=== PATIENT | female | born 1970 | race Caucasian/White ===

== ENCOUNTER 2021-10-04 09:39 | Inpatient (IN) ==
[2021-10-04] MEDS ORDERED: RAPID SEQUENCE INDUCTION BAG ONE (09:49)
[2021-10-04] MEDS ORDERED: ONDANSETRON INJ 2 MG/ML 2 ML VIAL IV STA (09:52)
[2021-10-04] MEDS ORDERED: PROPOFOL IV EMULSION 10 MG/ML 100 ML VIAL IV ONE (09:55)
[2021-10-04] MEDS ORDERED: STAT IV Infusion **Titration per Protocol STA (10:00)
[2021-10-04] MEDS ORDERED: PROPOFOL BOLUS FROM BAG IV PRN (10:00)
[2021-10-04] MEDS: propofoL 1,000 MG/100 ML VIAL IV SCH ×5 (10:10→23:54)
[2021-10-04 10:25] LABS: Basophils # (auto) 0.02 K/uL (0-0.2); Basophils % (auto) 0.1 %; Eosinophils # (auto) 0.02 K/uL (0-0.5); Eosinophils % (auto) 0.1 %; Hematocrit (blood only) 47.2 % (37-47); Hemoglobin 16.1 g/dL (12.0-16.0); Immature Granulocytes # (auto) 0.04 K/uL (0.00-0.02); Immature Granulocytes % (auto) 0.3 %; Lymphocytes % (auto) 11.1 %; Mean Corpuscular Hemoglobin 32.8 pg (25-34); Mean Corpuscular Hgb Conc 34.1 g/dL (32-36); Mean Corpuscular Volume 96.1 fL (80-100); Monocytes # (auto) 0.87 K/uL (0.11-0.59); Monocytes % (auto) 6.5 %; Neutrophils # (auto) 11.01 K/uL (1.4-6.5); Neutrophils % (auto) 81.9 %; Platelet Count 273 K/uL (130-400); RDW Coefficient of Variation 13.5 % (11.5-14.5); RDW Standard Deviation 47.7 fL (36.4-46.3); Red Blood Count 4.91 M/uL (4.2-5.4); White Blood Count 13.46 K/uL (4.8-10.8)
--- NOTE | 2021-10-04 10:31 | XRay Report ---
SINGLE VIEW CHEST CLINICAL HISTORY: Change in mental status. Intubation. FINDINGS: An AP, portable, semierect chest radiograph is compared to study dated 08/04/2021. An endotra cheal tube has been placed. The tip projects just below the thoracic inlet approximately 5.5 cm above the arabella. The cardiomediastinal silhouette is unremarkable. Airspace opacities are noted at the le ft lung base. No large pleural effusion or pneumothorax is seen. The bony thorax is grossly intact. IMPRESSION: 1. An endotracheal tube has been placed as above. 2. Airspace opacities at the left lung base could represent atelectasis versus an infectious/inflamma tory pneumonitis. Clinical correlation will be required and radiographic follow-up to resolution is r ecommended. ACT 112: Negative or not required by law. Electronically signed by: Tremaine Tovar M.D. 10/04/2021 10:30 AM
--- NOTE | 2021-10-04 10:37 | Emergency Department Note ---
Impression & Plan Acute alteration in mental status, Hypokalemia, Pneumonia, Delirium ED Provider Note NAME: CAL GARIBAY AGE: 51 SEX: F : 1970 ARRIVES VIA: Ambulance INFORMANT: EMS ED PROVIDER(S): Andrea Jessica DO CHIEF COMPLAINT: Altered mental status HPI: The patient is a 51-year-old female who presented to the emergency [facility] with EMS. The story was obtained from the EMS who also obtained the history from [facility]'s resource [place]. The patient was at the methadone clinic this morning. When she came back from the methadone clinic she was difficult to arouse and appeared to have a seizure. She received 4 g of Narcan by the staff at her homeless nursing home. It is unclear if the seizure occurred after the Narcan or before but the patient then became very combative and was spitting. She was not making much sense and could not answer questions. 911 was called. Paramedics arrived on scene. The patient received Ativan at that time. She then became uncontrollable and received 400 mg of ketamine after they discussed the patient with me via prehospital medical command. The patient arrived to the emergency department. She was not able to answer questions. There was no history of trauma. ROS: See above HPI for pertinent positives & negatives. A total of 10 systems r eviewed and were otherwise negative. PAST MEDICAL HISTORY: See Below PAST SURGICAL HISTORY: See Below FAMILY HISTORY: See Below SOCIAL HISTORY: See Below HOME MEDICATIONS: See Below ALLERGIES: See Below VITALS: See Below PHYSICAL EXAMINATION: GENERAL: Patient is awake and looking around the room. She does not answer questions. She appears to be exhibiting the signs of the ketamine. EYES: The conjunctivae are injected bilaterally. Nystagmus was noted. Pupils are dilated and minimally reactive to light bilaterally. EARS, NOSE, MOUTH AND THROAT: The nose is without any evidence of any deformity. The patient appears to have copious oral secretions. NECK: The neck is nontender and supple. RESPIRATORY: Initial breath sounds are noted throughout. Rales were noted throughout. Diminished breath sounds are noted with shallow respirations. CARDIOVASCULAR: Regular rate and rhythm noted there no murmurs rubs or gallops normal S1 normal S2. GASTROINTESTINAL: The abdomen is soft. Abdomen is nontender. MUSCULOSKELETAL/EXTREMITIES: There is no evidence of gross deformity full range of motion is noted in the hips and shoulders. SKIN: Skin is warm and dry. Trace pedal edema was noted bilaterally. NEUROLOGIC: Patient is awake and looking around the room. She does not answer questions. I am unable to assess orientation at this time. Patellar tendon reflexes are 2+ bilaterally. MEDICAL DECISION MAKING: Patient is a 51-year-old female who presented to the emergency department with delirium. She did receive Narcan for suspected overdose as she just returned from the methadone clinic. The patient was very difficult to manage as an outpatient and received ketamine prior to arrival for excited delirium. The patient did require airway management as her secretions were increased and her physical exam appear to be consistent with pulmonary edema it was thought to be secondary to Narcan. The patient was intubated in usual fashion. She tolerated this well. She was placed on sedation. I discussed the patient's laboratory and radiographic studies with the on-call [facility] team. They have agreed to evaluate the patient in the emergency department. Patient was treated with IV antibiotics. She was reevaluated multiple times. Triage Nursing notes reviewed. Prior medical records reviewed Vital Signs: reviewed and remarkable for elevated blood pressure and tachycardia. Differential diagnosis: Overdose, toxicologic, infection, hypoglycemia, electrolyte abnormalities, cardiac sources, intracerebral event, neurologic, trauma, as well as other pathologies. ER treatment provided: See below Diagnostics interpreted by me: ECG: EKG was obtained in the emergency department. My interpretation is normal sinus rhythm at 88 bpm. There is no ectopy. There is no acute ST segment abnormalities noted. No previous tracing was available. Cardiac Monitoring: An order was placed for continuous cardiac monitoring. The monitor shows a rate of 102 bpm with sinus tachycardia. Laboratory studies: As stated above and show below. Imaging studies: See below Consultation(s): I discussed this case with Poornima who is on-call for the [facility] group. ED COURSE: Procedures: Endotracheal Intubation Indication overdose. The patient was on 100% oxygen via NRB prior to the procedure. Suction, airway equipment, RSI drugs, respiratory equipment, and appropriate personnel were prepared prior to the initiation of the procedure. A time out was taken. Induction was performed with ketamine via ALS and rocuronium After observing the clinical benefit of the medications, the airway was easily visualized utilizing a glide scope. A 7.5 siize ETT tube was placed atraumatically to 21cm using standard technique. The cuff inflated without signs of malfunction. There were bilateral breath sounds, positive colormetric change, no gastric sounds, a good capnography waveform, and post procedure pulse oximetry was 98%. Post intubation sedation and paralysis was administered using propofol. There were no complications. Critical Care: I have personally spent greater than 55 minutes of critical care time in the direct management of this patient. This includes bedside care, interpretation of diagnostic studies, and testing, discussion with consultants, patient, and family members, and other required patient management activities. This 55 minutes is in excess of all separately billable procedures. Past Med/Surg History Medical History (Updated 10/04/21 @ 12:40 by Andrea Jessica DO) Bipolar disorder Borderline personality disorder COPD (chronic obstructive pulmonary disease) Hepatitis C recently saw hepatology 09/20/21 but has not yet started treatment Heroin abuse Narcolepsy Narcolepsy Plica syndrome Polysubstance abuse Surgical History History of hysterectomy Hx of total knee arthroplasty Family History Mother Hypertension Father Cancer Social History Smoking Status: Current some day smoker Hx Alcohol Use: No Hx Substance Use: Yes Non-Prescribed Medications: Heroin, Marijuana and Methamphetamines Last Used Substance: Hours (ago) Preferred Language: South [place] Communication Ability: Unable Current Living Situation: Homeless Current Living Situation Comment: lives in homeless nursing home Feels Safe at Home: Yes Allergies Allergies Allergy/AdvReac Type Severity Reaction Status Date / Time phentermine Allergy Unknown Verified 10/04/21 12:26 Home Meds Home Medications Medication Instructions Recorded Confirmed albuterol sulfate 2.5 mg INHALATION Q6 PRN 10/04/21 10/04/21 fluoxetine 20 mg tablet 20 mg PO DAILY 10/04/21 10/04/21 fluticasone propionate 115 2 puff INHALATION BID 10/04/21 10/04/21 mcg-salmeterol 21 mcg/actuation HFA inhaler (Advair HFA) gabapentin 800 mg tablet 800 mg PO TID 10/04/21 10/04/21 ipratropium bromide 17 2 puff INHALATION QID 10/04/21 10/04/21 mcg/actuation HFA aerosol inhaler (Atrovent HFA) methadone 10 mg tablet 90 mg PO DAILY 10/04/21 10/04/21 Results & Data (ED) Vital Signs Vital Signs - 24 hr 10/04/21 09:44 10/04/21 09:56 10/04/21 09:59 Temperature 37.2 C Temperature Source Oral Pulse Rate 119 H 109 H 99 H Pulse Rate from SpO2 Sensor 109 H 102 H Respiratory Rate 25 H 23 31 H Respiratory Effort / Characteristics Non-Labored Spontaneous Respiratory Depth Normal Respiratory Pattern Regular Blood Pressure 165/110 H 145/94 H Blood Pressure Mean 128 111 Blood Pressure Position Lying Pulse Oximetry 95 94 92 Oxygen Delivery Method Room Air Fraction of Inspired Oxygen Sepsis Recent Fever Within 48 Hours No Sepsis New/Unexplained Change in Mental Status No Sepsis Action Taken by Nursing No Action Required End-Tidal CO2 10/04/21 10:00 10/04/21 10:08 10/04/21 10:15 Temperature Temperature Source Pulse Rate 102 H 116 H 115 H Pulse Rate from SpO2 Sensor 103 H Respiratory Rate 37 H 18 18 Respiratory Effort / Characteristics Respiratory Depth Respiratory Pattern Blood Pressure 139/95 Blood Pressure Mean 109 Blood Pressure Position Pulse Oximetry 93 95 92 Oxygen Delivery Method Mechanical Vent Fraction of Inspired Oxygen 60 60 Sepsis Recent Fever Within 48 Hours Sepsis New/Unexplained Change in Mental Status Sepsis Action Taken by Nursing End-Tidal CO2 34 35 10/04/21 10:30 10/04/21 10:33 10/04/21 10:56 Temperature Temperature Source Pulse Rate 108 H 102 H Pulse Rate from SpO2 Sensor Respiratory Rate 18 20 Respiratory Effort / Characteristics Respiratory Depth Respiratory Pattern Blood Pressure 174/112 H Blood Pressure Mean 132 Blood Pressure Position Pulse Oximetry 93 Oxygen Delivery Method Mechanical Vent Fraction of Inspired Oxygen 60 Sepsis Recent Fever Within 48 Hours Sepsis New/Unexplained Change in Mental Status Sepsis Action Taken by Nursing End-Tidal CO2 40 10/04/21 11:00 10/04/21 11:30 10/04/21 12:00 Temperature Temperature Source Pulse Rate 103 H 105 H 102 H Pulse Rate from SpO2 Sensor 103 H 102 H Respiratory Rate 20 20 20 Respiratory Effort / Characteristics Respiratory Depth Respiratory Pattern Blood Pressure 175/109 H 180/109 H 165/98 H Blood Pressure Mean 131 132 120 Blood Pressure Position Pulse Oximetry 94 95 96 Oxygen Delivery Method Mechanical Vent Mechanical Vent Mechanical Vent Fraction of Inspired Oxygen 60 60 60 Sepsis Recent Fever Within 48 Hours Sepsis New/Unexplained Change in Mental Status Sepsis Action Taken by Nursing End-Tidal CO2 44 48 48 Home Medications Current Medication List: was personally reviewed by me Laboratory Data Attestation: I reviewed the patient's lab results. Result diagrams: 10/04/21 09:50 10/04/21 09:50 Lab Results 10/04/21 10/04/21 10/04/21 Range/Units 09:50 09:50 09:50 WBC 13.46 H (4.8-10.8) K/uL RBC 4.91 (4.2-5.4) M/uL Hgb 16.1 H (12.0-16.0) g/dL POC Hgb (12.0-16.0) g/dl Hct 47.2 H (37-47) % POC Hct (37-47) % MCV 96.1 (80-100) fL MCH 32.8 (25-34) pg MCHC 34.1 (32-36) g/dL RDW Std Deviation 47.7 H (36.4-46.3) fL RDW Coeff of Stephanie 13.5 (11.5-14.5) % Plt Count 273 (130-400) K/uL MPV 10.0 (7.4-10.4) fL Immature Gran % (Auto) 0.3 % Neut % (Auto) 81.9 % Lymph % (Auto) 11.1 % [place] % (Auto) 6.5 % Eos % (Auto) 0.1 % Baso % (Auto) 0.1 % Neut # (Auto) 11.01 H (1.4-6.5) K/uL Lymph # (Auto) 1.50 (1.2-3.4) K/uL [place] # (Auto) 0.87 H (0.11-0.59) K/uL Eos # (Auto) 0.02 (0-0.5) K/uL Baso # (Auto) 0.02 (0-0.2) K/uL Immature Gran # (Auto) 0.04 H (0.00-0.02) K/uL ESR (0-20) mm/hr PT 11.4 (9.0-12.0) Seconds INR 1.1 (0.9-1.1) APTT 27.9 (21.0-31.0) Seconds PTT Ratio 1.0 POC Sodium (135-144) mmol/L Sodium 138 (136-145) mmol/L POC Potassium (3.3-5.0) mmol/L Potassium 2.9 L (3.5-5.1) mmol/L POC Chloride (101-112) mmol/L Chloride 104 (98-107) mmol/L Carbon Dioxide 19 L (21-32) mmol/L POC Total CO2 (24-31) mmol/L Anion Gap 15 H (3-11) POC Anion Gap (16-25) mmol/L POC BUN (7-18) mg/dl BUN 15 (6-23) mg/dl Creatinine 0.86 (0.6-1.2) mg/dl POC Creatinine (0.6-1.3) mg/dl Est Cr Clr Drug Dosing 88.2 ml/min Est GFR ( Amer) 91.9 ml/min Est GFR (Non-Af Amer) 79.3 ml/min BUN/Creatinine Ratio 17.4 (10-20) Glucose 161 H (70-99(Fasting)) mg/dl POC Glucose (other) (70-99) mg/dl Calcium 10.0 (8.5-10.1) mg/dl POC Ioniz Calcium Kyle (1.12-1.32) mmol/l Magnesium 1.9 (1.7-2.4) mg/dl Total Bilirubin 0.9 (0.2-1.0) mg/dl AST 34 (13-39) U/L ALT 30 (7-52) U/L Alkaline Phosphatase 82 (34-104) U/L Total Creatine Kinase 524 H (26-192) U/L Troponin I High Sens 6.2 (0-14) pg/ml C-Reactive Protein (0-0.5) mg/dl Total Protein 8.6 H (6.0-8.3) gm/dl Albumin 4.5 (3.4-5.0) gm/dl Globulin 4.1 H (2.5-4.0) gm/dl Albumin/Globulin Ratio 1.1 (0.9-2) Procalcitonin (0-0.5) ng/ml HCG, Qual (Negative) Urine Color Urine Appearance (Clear) Urine pH (4.5-7.5) Ur Specific [place] (1.000-1.030) Urine Protein (Negative) Urine Glucose (UA) (Negative) Urine Ketones (Negative) Urine Blood (Negative) Urine Nitrite (Negative) Urine Bilirubin (Negative) Urine Urobilinogen (Negative) Ur Leukocyte Esterase (Negative) Urine WBC (Auto) (0-5) /hpf Urine RBC (Auto) (0-4) /hpf U Hyaline Cast (Auto) (0-5) /lpf U Epithel Cells (Auto) (0-5) /lpf Urine Bacteria (Auto) (Negative) Ur Renal Epithelial Cell Salicylates (3.0-30) mg/dl Urine Opiates Screen (Neg) Ur Methadone, Qual (Neg) Acetaminophen (10-30) ug/ml Urine Barbiturates (Neg) Ur Phencyclidine (PCP) (Neg) U Amphetamin/Meth Scrn (Neg) MDMA (Ecstasy) Screen (Neg) U Benzodiazepines Scrn (Neg) Ur Cocaine Metabolite (Neg) U Marijuana (THC) Screen (Neg) Ethyl Alcohol mg/dL (<10.0) mg/dl SARS-CoV-2, RNA, NAAT (NEGATIVE) 10/04/21 10/04/21 10/04/21 Range/Units 09:50 09:50 09:50 WBC (4.8-10.8) K/uL RBC (4.2-5.4) M/uL Hgb (12.0-16.0) g/dL POC Hgb (12.0-16.0) g/dl Hct (37-47) % POC Hct (37-47) % MCV (80-100) fL MCH (25-34) pg MCHC (32-36) g/dL RDW Std Deviation (36.4-46.3) fL RDW Coeff of Stephanie (11.5-14.5) % Plt Count (130-400) K/uL MPV (7.4-10.4) fL Immature Gran % (Auto) % Neut % (Auto) % Lymph % (Auto) % [place] % (Auto) % Eos % (Auto) % Baso % (Auto) % Neut # (Auto) (1.4-6.5) K/uL Lymph # (Auto) (1.2-3.4) K/uL [place] # (Auto) (0.11-0.59) K/uL Eos # (Auto) (0-0.5) K/uL Baso # (Auto) (0-0.2) K/uL Immature Gran # (Auto) (0.00-0.02) K/uL ESR 55 H (0-20) mm/hr PT (9.0-12.0) Seconds INR (0.9-1.1) APTT (21.0-31.0) Seconds PTT Ratio POC Sodium (135-144) mmol/L Sodium (136-145) mmol/L POC Potassium (3.3-5.0) mmol/L Potassium (3.5-5.1) mmol/L POC Chloride (101-112) mmol/L Chloride (98-107) mmol/L Carbon Dioxide (21-32) mmol/L POC Total CO2 (24-31) mmol/L Anion Gap (3-11) POC Anion Gap (16-25) mmol/L POC BUN (7-18) mg/dl BUN (6-23) mg/dl Creatinine (0.6-1.2) mg/dl POC Creatinine (0.6-1.3) mg/dl Est Cr Clr Drug Dosing ml/min Est GFR ( Amer) ml/min Est GFR (Non-Af Amer) ml/min BUN/Creatinine Ratio (10-20) Glucose (70-99(Fasting)) mg/dl POC Glucose (other) (70-99) mg/dl Calcium (8.5-10.1) mg/dl POC Ioniz Calcium Kyle (1.12-1.32) mmol/l Magnesium (1.7-2.4) mg/dl Total Bilirubin (0.2-1.0) mg/dl AST (13-39) U/L ALT (7-52) U/L Alkaline Phosphatase (34-104) U/L Total Creatine Kinase (26-192) U/L Troponin I High Sens (0-14) pg/ml C-Reactive Protein (0-0.5) mg/dl Total Protein (6.0-8.3) gm/dl Albumin (3.4-5.0) gm/dl Globulin (2.5-4.0) gm/dl Albumin/Globulin Ratio (0.9-2) Procalcitonin (0-0.5) ng/ml HCG, Qual Negative (Negative) Urine Color Urine Appearance (Clear) Urine pH (4.5-7.5) Ur Specific [place] (1.000-1.030) Urine Protein (Negative) Urine Glucose (UA) (Negative) Urine Ketones (Negative) Urine Blood (Negative) Urine Nitrite (Negative) Urine Bilirubin (Negative) Urine Urobilinogen (Negative) Ur Leukocyte Esterase (Negative) Urine WBC (Auto) (0-5) /hpf Urine RBC (Auto) (0-4) /hpf U Hyaline Cast (Auto) (0-5) /lpf U Epithel Cells (Auto) (0-5) /lpf Urine Bacteria (Auto) (Negative) Ur Renal Epithelial Cell Salicylates (3.0-30) mg/dl Urine Opiates Screen (Neg) Ur Methadone, Qual (Neg) Acetaminophen (10-30) ug/ml Urine Barbiturates (Neg) Ur Phencyclidine (PCP) (Neg) U Amphetamin/Meth Scrn (Neg) MDMA (Ecstasy) Screen (Neg) U Benzodiazepines Scrn (Neg) Ur Cocaine Metabolite (Neg) U Marijuana (THC) Screen (Neg) Ethyl Alcohol mg/dL < 10.0 (<10.0) mg/dl SARS-CoV-2, RNA, NAAT (NEGATIVE) 10/04/21 10/04/21 10/04/21 Range/Units 09:50 09:50 10:14 WBC (4.8-10.8) K/uL RBC (4.2-5.4) M/uL Hgb (12.0-16.0) g/dL POC Hgb (12.0-16.0) g/dl Hct (37-47) % POC Hct (37-47) % MCV (80-100) fL MCH (25-34) pg MCHC (32-36) g/dL RDW Std Deviation (36.4-46.3) fL RDW Coeff of Stephanie (11.5-14.5) % Plt Count (130-400) K/uL MPV (7.4-10.4) fL Immature Gran % (Auto) % Neut % (Auto) % Lymph % (Auto) % [place] % (Auto) % Eos % (Auto) % Baso % (Auto) % Neut # (Auto) (1.4-6.5) K/uL Lymph # (Auto) (1.2-3.4) K/uL [place] # (Auto) (0.11-0.59) K/uL Eos # (Auto) (0-0.5) K/uL Baso # (Auto) (0-0.2) K/uL Immature Gran # (Auto) (0.00-0.02) K/uL ESR (0-20) mm/hr PT (9.0-12.0) Seconds INR (0.9-1.1) APTT (21.0-31.0) Seconds PTT Ratio POC Sodium (135-144) mmol/L Sodium (136-145) mmol/L POC Potassium (3.3-5.0) mmol/L Potassium (3.5-5.1) mmol/L POC Chloride (101-112) mmol/L Chloride (98-107) mmol/L Carbon Dioxide (21-32) mmol/L POC Total CO2 (24-31) mmol/L Anion Gap (3-11) POC Anion Gap (16-25) mmol/L POC BUN (7-18) mg/dl BUN (6-23) mg/dl Creatinine (0.6-1.2) mg/dl POC Creatinine (0.6-1.3) mg/dl Est Cr Clr Drug Dosing ml/min Est GFR ( Amer) ml/min Est GFR (Non-Af Amer) ml/min BUN/Creatinine Ratio (10-20) Glucose (70-99(Fasting)) mg/dl POC Glucose (other) (70-99) mg/dl Calcium (8.5-10.1) mg/dl POC Ioniz Calcium Kyle (1.12-1.32) mmol/l Magnesium (1.7-2.4) mg/dl Total Bilirubin (0.2-1.0) mg/dl AST (13-39) U/L ALT (7-52) U/L Alkaline Phosphatase (34-104) U/L Total Creatine Kinase (26-192) U/L Troponin I High Sens (0-14) pg/ml C-Reactive Protein 4.97 H (0-0.5) mg/dl Total Protein (6.0-8.3) gm/dl Albumin (3.4-5.0) gm/dl Globulin (2.5-4.0) gm/dl Albumin/Globulin Ratio (0.9-2) Procalcitonin 0.09 (0-0.5) ng/ml HCG, Qual (Negative) Urine Color Urine Appearance (Clear) Urine pH (4.5-7.5) Ur Specific [place] (1.000-1.030) Urine Protein (Negative) Urine Glucose (UA) (Negative) Urine Ketones (Negative) Urine Blood (Negative) Urine Nitrite (Negative) Urine Bilirubin (Negative) Urine Urobilinogen (Negative) Ur Leukocyte Esterase (Negative) Urine WBC (Auto) (0-5) /hpf Urine RBC (Auto) (0-4) /hpf U Hyaline Cast (Auto) (0-5) /lpf U Epithel Cells (Auto) (0-5) /lpf Urine Bacteria (Auto) (Negative) Ur Renal Epithelial Cell Salicylates < 3.0 L (3.0-30) mg/dl Urine Opiates Screen (Neg) Ur Methadone, Qual (Neg) Acetaminophen < 3 L (10-30) ug/ml Urine Barbiturates (Neg) Ur Phencyclidine (PCP) (Neg) U Amphetamin/Meth Scrn (Neg) MDMA (Ecstasy) Screen (Neg) U Benzodiazepines Scrn (Neg) Ur Cocaine Metabolite (Neg) U Marijuana (THC) Screen (Neg) Ethyl Alcohol mg/dL (<10.0) mg/dl SARS-CoV-2, RNA, NAAT (NEGATIVE) 10/04/21 10/04/21 10/04/21 Range/Units 10:16 10:16 10:16 WBC (4.8-10.8) K/uL RBC (4.2-5.4) M/uL Hgb (12.0-16.0) g/dL POC Hgb (12.0-16.0) g/dl Hct (37-47) % POC Hct (37-47) % MCV (80-100) fL MCH (25-34) pg MCHC (32-36) g/dL RDW Std Deviation (36.4-46.3) fL RDW Coeff of Stephanie (11.5-14.5) % Plt Count (130-400) K/uL MPV (7.4-10.4) fL Immature Gran % (Auto) % Neut % (Auto) % Lymph % (Auto) % [place] % (Auto) % Eos % (Auto) % Baso % (Auto) % Neut # (Auto) (1.4-6.5) K/uL Lymph # (Auto) (1.2-3.4) K/uL [place] # (Auto) (0.11-0.59) K/uL Eos # (Auto) (0-0.5) K/uL Baso # (Auto) (0-0.2) K/uL Immature Gran # (Auto) (0.00-0.02) K/uL ESR (0-20) mm/hr PT (9.0-12.0) Seconds INR (0.9-1.1) APTT (21.0-31.0) Seconds PTT Ratio POC Sodium (135-144) mmol/L Sodium (136-145) mmol/L POC Potassium (3.3-5.0) mmol/L Potassium (3.5-5.1) mmol/L POC Chloride (101-112) mmol/L Chloride (98-107) mmol/L Carbon Dioxide (21-32) mmol/L POC Total CO2 (24-31) mmol/L Anion Gap (3-11) POC Anion Gap (16-25) mmol/L POC BUN (7-18) mg/dl BUN (6-23) mg/dl Creatinine (0.6-1.2) mg/dl POC Creatinine (0.6-1.3) mg/dl Est Cr Clr Drug Dosing ml/min Est GFR ( Amer) ml/min Est GFR (Non-Af Amer) ml/min BUN/Creatinine Ratio (10-20) Glucose (70-99(Fasting)) mg/dl POC Glucose (other) (70-99) mg/dl Calcium (8.5-10.1) mg/dl POC Ioniz Calcium Kyle (1.12-1.32) mmol/l Magnesium (1.7-2.4) mg/dl Total Bilirubin (0.2-1.0) mg/dl AST (13-39) U/L ALT (7-52) U/L Alkaline Phosphatase (34-104) U/L Total Creatine Kinase (26-192) U/L Troponin I High Sens (0-14) pg/ml C-Reactive Protein (0-0.5) mg/dl Total Protein (6.0-8.3) gm/dl Albumin (3.4-5.0) gm/dl Globulin (2.5-4.0) gm/dl Albumin/Globulin Ratio (0.9-2) Procalcitonin (0-0.5) ng/ml HCG, Qual (Negative) Urine Color Yellow Urine Appearance Clear (Clear) Urine pH 5.5 (4.5-7.5) Ur Specific [place] 1.031 H (1.000-1.030) Urine Protein 2+ H (Negative) Urine Glucose (UA) Negative (Negative) Urine Ketones 1+ H (Negative) Urine Blood 1+ H (Negative) Urine Nitrite Negative (Negative) Urine Bilirubin Negative (Negative) Urine Urobilinogen Negative (Negative) Ur Leukocyte Esterase Negative (Negative) Urine WBC (Auto) 1-5 (0-5) /hpf Urine RBC (Auto) 0-4 (0-4) /hpf U Hyaline Cast (Auto) 5-10 H (0-5) /lpf U Epithel Cells (Auto) >30 H (0-5) /lpf Urine Bacteria (Auto) Negative (Negative) Ur Renal Epithelial Cell Not Reportable Salicylates (3.0-30) mg/dl Urine Opiates Screen Neg (Neg) Ur Methadone, Qual Pos H (Neg) Acetaminophen (10-30) ug/ml Urine Barbiturates Neg (Neg) Ur Phencyclidine (PCP) Neg (Neg) U Amphetamin/Meth Scrn Pos H (Neg) MDMA (Ecstasy) Screen Pos H (Neg) U Benzodiazepines Scrn Neg (Neg) Ur Cocaine Metabolite Neg (Neg) U Marijuana (THC) Screen Pos H (Neg) Ethyl Alcohol mg/dL (<10.0) mg/dl SARS-CoV-2, RNA, NAAT NEGATIVE (NEGATIVE) 10/04/21 Range/Units 10:29 WBC (4.8-10.8) K/uL RBC (4.2-5.4) M/uL Hgb (12.0-16.0) g/dL POC Hgb 16.7 H (12.0-16.0) g/dl Hct (37-47) % POC Hct 49 H (37-47) % MCV (80-100) fL MCH (25-34) pg MCHC (32-36) g/dL RDW Std Deviation (36.4-46.3) fL RDW Coeff of Stephanie (11.5-14.5) % Plt Count (130-400) K/uL MPV (7.4-10.4) fL Immature Gran % (Auto) % Neut % (Auto) % Lymph % (Auto) % [place] % (Auto) % Eos % (Auto) % Baso % (Auto) % Neut # (Auto) (1.4-6.5) K/uL Lymph # (Auto) (1.2-3.4) K/uL [place] # (Auto) (0.11-0.59) K/uL Eos # (Auto) (0-0.5) K/uL Baso # (Auto) (0-0.2) K/uL Immature Gran # (Auto) (0.00-0.02) K/uL ESR (0-20) mm/hr PT (9.0-12.0) Seconds INR (0.9-1.1) APTT (21.0-31.0) Seconds PTT Ratio POC Sodium 141 (135-144) mmol/L Sodium (136-145) mmol/L POC Potassium 2.7 L (3.3-5.0) mmol/L Potassium (3.5-5.1) mmol/L POC Chloride 106 (101-112) mmol/L Chloride (98-107) mmol/L Carbon Dioxide (21-32) mmol/L POC Total CO2 21 L (24-31) mmol/L Anion Gap (3-11) POC Anion Gap 18.0 (16-25) mmol/L POC BUN 15 (7-18) mg/dl BUN (6-23) mg/dl Creatinine (0.6-1.2) mg/dl POC Creatinine 0.7 (0.6-1.3) mg/dl Est Cr Clr Drug Dosing ml/min Est GFR ( Amer) ml/min Est GFR (Non-Af Amer) ml/min BUN/Creatinine Ratio (10-20) Glucose (70-99(Fasting)) mg/dl POC Glucose (other) 155 H (70-99) mg/dl Calcium (8.5-10.1) mg/dl POC Ioniz Calcium Kyle 1.26 (1.12-1.32) mmol/l Magnesium (1.7-2.4) mg/dl Total Bilirubin (0.2-1.0) mg/dl AST (13-39) U/L ALT (7-52) U/L Alkaline Phosphatase (34-104) U/L Total Creatine Kinase (26-192) U/L Troponin I High Sens (0-14) pg/ml C-Reactive Protein (0-0.5) mg/dl Total Protein (6.0-8.3) gm/dl Albumin (3.4-5.0) gm/dl Globulin (2.5-4.0) gm/dl Albumin/Globulin Ratio (0.9-2) Procalcitonin (0-0.5) ng/ml HCG, Qual (Negative) Urine Color Urine Appearance (Clear) Urine pH (4.5-7.5) Ur Specific [place] (1.000-1.030) Urine Protein (Negative) Urine Glucose (UA) (Negative) Urine Ketones (Negative) Urine Blood (Negative) Urine Nitrite (Negative) Urine Bilirubin (Negative) Urine Urobilinogen (Negative) Ur Leukocyte Esterase (Negative) Urine WBC (Auto) (0-5) /hpf Urine RBC (Auto) (0-4) /hpf U Hyaline Cast (Auto) (0-5) /lpf U Epithel Cells (Auto) (0-5) /lpf Urine Bacteria (Auto) (Negative) Ur Renal Epithelial Cell Salicylates (3.0-30) mg/dl Urine Opiates Screen (Neg) Ur Methadone, Qual (Neg) Acetaminophen (10-30) ug/ml Urine Barbiturates (Neg) Ur Phencyclidine (PCP) (Neg) U Amphetamin/Meth Scrn (Neg) MDMA (Ecstasy) Screen (Neg) U Benzodiazepines Scrn (Neg) Ur Cocaine Metabolite (Neg) U Marijuana (THC) Screen (Neg) Ethyl Alcohol mg/dL (<10.0) mg/dl SARS-CoV-2, RNA, NAAT (NEGATIVE) Administered Medications Propofol (Diprivan) 1,000 mg in 100 mls @ 10.512 mls/hr IV .[id number] [facility]; Protocol Stop: 10/07/21 09:59 Last Titration: 10/04/21 12:28 Dose: 25 mcg/kg/min, 13.1 mls/hr Documented by: [id number] Admin: 10/04/21 10:10 Dose: 20 mcg/kg/min, 10.5 mls/hr Documented by: [id number] Cosigned by: [id number] Discontinued Medications Piperacillin Sod/Tazobactam Sod (Zosyn) 4.5 gm in 120 mls @ 240 mls/hr IV NOW O NE Stop: 10/04/21 12:22 Last Admin: 10/04/21 12:05 Dose: 240 mls/hr Documented by: [id number] Miscellaneous (Rapid Sequence Induction Bag) Confirm Administered Dose 1 ea .ROUTE .STK-MED ONE Stop: 10/04/21 09:50 Last Admin: 10/04/21 10:06 Dose: 1 ea Documented by: [id number] Ondansetron HCl (Ondansetron Inj 2 Mg/Ml 2 Ml Vial) 4 mg IV NOW STA Stop: 10/04/21 09:53 Last Admin: 10/04/21 10:25 Dose: 4 mg Documented by: [id number] Propofol (Propofol Iv Emulsion 10 Mg/Ml 100 Ml Vial) Confirm Administered Dose 1,000 mg IV .STK-MED ONE Stop: 10/04/21 09:56 Last Admin: 10/04/21 10:21 Dose: Not Given Documented by: [id number] Imaging Data Radiologist's Impression: Chest X-Ray 10/04/21 09:52 SINGLE VIEW CHEST CLINICAL HISTORY: Change in mental status. Intubation. FINDINGS: An AP, portable, semierect chest radiograph is compared to study dated 08/04/2021. An endotracheal tube has been placed. The tip projects just below the thoracic inlet approximately 5.5 cm above the arabella. The cardiomediastinal silhouette is unremarkable. Airspace opacities are noted at the left lung base. No large pleural effusion or pneumothorax is seen. The bony thorax is grossly intact. IMPRESSION: 1. An endotracheal tube has been placed as above. 2. Airspace opacities at the left lung base could represent atelectasis versus an infectious/inflammatory pneumonitis. Clinical correlation will be required and radiographic follow-up to resolution is recommended. ACT 112: Negative or not required by law. Electronically signed by: Tremaine Tovar M.D. 10/04/2021 10:[address] 10/04/21 09:[address] DOSE: 537.48 mGy.cm HISTORY: Altered mental status. TECHNIQUE: Multiaxial CT images of the head were performed without the use of intravenous contrast. Automated exposure control was utilized for this study. A dose lowering technique was utilized adhering to the principles of ALARA. Comparison: Head CT 08/04/2021. Findings: The paranasal sinuses and mastoid air cells are clear. The calvarium and skull base are intact. The ventricles and sulci are within normal limits. There is no mass, hematoma, midline shift, or acute infarct. Impression: No acute intracranial abnormality. ACT 112: Negative or not required by law. Electronically signed by: Marky Bob M.D. 10/04/2021 11:04 AM Discharge Plan Visit Data Chief Complaint: Overdose (Intentional) Stated Complaint: OVERDOSE, SEIZURE ED Provider: Andrea Jessica Discharge Problem: Acute alteration in mental status, Hypokalemia, Pneumonia, Delirium Patient Disposition: Being Evaluated by Hospitalist Forms Stand Alone Forms: [facility], Suicide Prevention Resources Prescriptions Prescriptions: No Action albuterol sulfate 2.5 mg /3 mL (0.083 %) solution for nebulization 2.5 mg inhalation Q6 PRN (Reason: sob) RF: 0 methadone 10 mg Tablet 90 mg PO DAILY RF: 0 gabapentin 800 mg Tablet 800 mg PO TID RF: 0 fluoxetine 20 mg tablet 20 mg PO DAILY RF: 0 Atrovent HFA 17 mcg/actuation Hfa Aerosol Inhaler 2 puff INHALATION QID RF: 0 Advair HFA 115-21 mcg/actuation Hfa Aerosol Inhaler 2 puff INHALATION BID RF: 0 Referrals Referrals: Enio Mariano, [Primary Care Provider] -
[2021-10-04 10:40] LABS: iSTAT Creatinine 0.7 mg/dl (0.6-1.3); iSTAT Hemoglobin 16.7 g/dl (12.0-16.0); iSTAT Ionized Calcium 1.26 mmol/l (1.12-1.32); iSTAT Potassium 2.7 mmol/L (3.3-5.0)
[2021-10-04 10:44] LABS: Albumin Globulin Ratio 1.1 (0.9-2); Albumin Level 4.5 gm/dl (3.4-5.0); BUN Creatinine Ratio 17.4 (10-20); Bilirubin,Total 0.9 mg/dl (0.2-1.0); Creatinine Clr Calc Pharmacy 88.2 ml/min; Est GFR (African American) 91.9 ml/min; Est GFR (Non-African American) 79.3 ml/min; Globulin 4.1 gm/dl (2.5-4.0); Magnesium 1.9 mg/dl (1.7-2.4); Potassium 2.9 mmol/L (3.5-5.1); Total Protein 8.6 gm/dl (6.0-8.3)
[2021-10-04 10:49] LABS: Troponin I High Sensitivity 6.2 pg/ml (0-14)
[2021-10-04 10:58] LABS: Acetaminophen < 3 ug/ml (10-30); Salicylate < 3.0 mg/dl (3.0-30)
[2021-10-04 11:01] LABS: Appearance Urine Clear (Clear); Bacteria Urine Automated Negative (Negative); Bilirubin Urine Negative (Negative); Blood Urine 1+ (Negative); Color Urine Yellow; Epithelial Cell Urine Auto >30 /lpf (0-5); Glucose Urine UA Negative (Negative); Ketones Urine 1+ (Negative); Leukocyte Esterase Urine Negative (Negative); Nitrite Urine Negative (Negative); Protein Urine 2+ (Negative); RBC Urine Automated 0-4 /hpf (0-4); Specific Gravity Urine 1.031 (1.000-1.030); Urobilinogen Urine Negative (Negative); pH Urine 5.5 (4.5-7.5)
[2021-10-04 11:06] LABS: INR 1.1 (0.9-1.1); Partial Thromboplastin Time 27.9 Seconds (21.0-31.0); Prothrombin Time 11.4 Seconds (9.0-12.0)
--- NOTE | 2021-10-04 11:06 | CT Scan Report ---
HEAD CT NONCONTRAST CT DOSE: 537.48 mGy.cm HISTORY: Altered mental status. TECHNIQUE: Multiaxial CT images of the head were performed without the use of intravenous contrast. A utomated exposure control was utilized for this study. A dose lowering technique was utilized adheri ng to the principles of ALARA. Comparison: Head CT 08/04/2021. Findings: The paranasal sinuses and mastoid air cells are clear. The calvarium and skull base are int act. The ventricles and sulci are within normal limits. There is no mass, hematoma, midline shift, or acute infarct. Impression: No acute intracranial abnormality. ACT 112: Negative or not required by law. Electronically signed by: Marky Bob M.D. 10/04/2021 11:04 AM
[2021-10-04 11:13] LABS: Pregnancy Test, Serum Negative (Negative)
[2021-10-04 11:23] LABS: Amphetamines+Metham, Urine Pos (Neg); Barbiturates, Urine Neg (Neg); Benzodiazepine, Urine Neg (Neg); Cocaine, Urine Neg (Neg); MDMA (Ecstacy), Urine Pos (Neg); Methadone, Urine Pos (Neg); Opiate, Urine Neg (Neg); Phencyclidine, Urine Neg (Neg)
[2021-10-04] MEDS ORDERED: PIPERACILL/TAZOBAC CONSULT ACTIVE PRN (11:53)
[2021-10-04] MEDS ORDERED: PIPERACILLIN/TAZOBACTAM 4.5 GM/120 ML BAG IV ONE (11:53)
--- NOTE | 2021-10-04 12:30 | History & Physical Report ---
Date of Service October 04, 2021 Assessment & Plan (1) Acute drug overdose: (2) Polysubstance abuse: (3) On mechanically assisted ventilation: (4) Delirium: (5) Hypokalemia: (6) Pneumonia: Plan: This is a 51-year-old female who has a significant past medical history of COPD, hepatitis C, narcolepsy, borderline personality disorder, bipolar disorder, depression, polysubstance abuse who presents to ED today after receiving Narcan secondary to drug overdose. Acute drug overdose Poly Substance abuse Mechanically ventilated due to inability to handle secretions Delirium pt to be admitted to ICU under care of Dr. Sorto continue vent, on propofol and versed NPO continue IVF + KCL further management per ICU UDS + for marijuana, methadone, MDMA per staff pt previously had been on cocaine as well staff found used needles, a scale with what appeared to be meth on it and marijuana. She also takes daily methadone Possible asp pneumonia CXR concerning for pneumonia elevated wbc which may be 2/2 to drug overdose procal normal continue IV zosyn for now, MRSA swab will defer to ICU for de escalation Hypokalemia K 2.9 on admission received 20meq KCL in ED continue repletion and repeat labs this afternoon Polysubstance abuse Borderline Personality disorder Bipolar once pt becomes more alert and weaned off vent discussion about rehab will need to begin hold meds for now COPD continue nebs prn no acute exac DVT ppx: SQ lovenox Dispo: ICU, CM will need to be involved, due to homeless [facility] finding drugs family on patient she will be unable to return for 3 days, it is highly recommended patient undergo drug rehab Full code PCP: Dr. Mariano Pt was seen and examined in collaboration with Dr. Mccoy, please see addendum History of Present Illness Chief Complaint: Drug OD [employer] Primary Care Provider: Enio Mariano, DO This is a 51-year-old female who has a significant past medical history of COPD, hepatitis C, narcolepsy, borderline personality disorder, bipolar disorder, depression, polysubstance abuse who presents to ED today after receiving Narcan secondary to drug overdose. History was obtained from prehospital personnel as well as my conversation with her homeless [facility], out of the [facility] in [facility]. Apparently she came to the homeless [facility] a few months ago and has remained there. She has been dealing with legal issues based out of [facility] and has been meeting all follow-up with police. She has years of drug abuse and has been using daily methadone. Staff at the homeless [facility]cc feels she has not been doing well the past few days. They feel she has been more anxious and has been making comments regarding ending her life. They did not feel a 302 was warranted. They feel a lot of this has to do with her underlying legal issues. Yesterday she had an incident with another female resident at the mcc and was asked to leave for the day due to being destructive. She left around lunchtime and got a hotel. Apparently at the hotel there was an incident with police involvement and an additional interaction in the [place] with police who then brought her back to the mcc around 3 AM. Overnight for a few hours staff noticed her clutching her stomach and they wanted to call 911, but she refused. Around 7 AM she went for her daily dose of methadone and on the way back staff noticed seizure-like activity with uncontrollable muscle movements and inability to hold head up. There was no loss of bowel or bladder. She then became verbally nonresponsive, but was still breathing. She was foaming at the mouth. Staff at home a [facility] called 911 and at that time Narcan was administered. She then became very combative and when EMS arrived she was given Ativan. She then required 400 mg of IV ketamine. Patient then became more sedated and when arrived to ER was foaming at the mouth and having difficulty handling her secretions. Her breathing also became shallow and at that time decision was made to intubate the patient. She was placed on propofol as well as Versed. Chest x-ray shows concern for questionable pneumonia so she was also started on IV Zosyn. She was found to be hypokalemic and started on potassium replacement. According to staff police did search her belongings and found several used needles, marijuana and a scale had what appeared to be meth on it. Allergies Allergy/AdvReac Type Severity Reaction Status Date / Time phentermine Allergy Unknown Psychosis, Verified 10/04/21 12:36 self harming Home Medications Medication Instructions Recorded Confirmed Type albuterol sulfate 2.5 mg INHALATION Q6 PRN 10/04/21 10/04/21 History albuterol sulfate 90 mcg/actuation 2 puff INHALATION Q4 PRN 10/04/21 10/04/21 History aerosol inhaler (Ventolin HFA) fluoxetine 20 mg tablet 20 mg PO DAILY 10/04/21 10/04/21 History fluticasone propionate 115 2 puff INHALATION BID 10/04/21 10/04/21 History mcg-salmeterol 21 mcg/actuation HFA inhaler (Advair HFA) gabapentin 800 mg tablet 800 mg PO TID 10/04/21 10/04/21 History ipratropium bromide 17 2 puff INHALATION QID 10/04/21 10/04/21 History mcg/actuation HFA aerosol inhaler (Atrovent HFA) methadone 10 mg tablet 90 mg PO DAILY 10/04/21 10/04/21 History topiramate 25 mg tablet (Topamax) 25 mg PO QAM 10/04/21 10/04/21 History Past Med/Surg History Medical History (Updated 10/04/21 @ 13:13 by Poornima Javed PA-C) Bipolar disorder Borderline personality disorder COPD (chronic obstructive pulmonary disease) Hepatitis C recently saw hepatology 09/20/21 but has not yet started treatment Heroin abuse Narcolepsy Narcolepsy Plica syndrome Polysubstance abuse Surgical History History of hysterectomy Hx of total knee arthroplasty Family History Mother Hypertension Father Cancer Social History Smoking Status: Unknown if ever smoked Hx Substance Use: Yes Non-Prescribed Medications: Heroin, Marijuana and Methamphetamines Last Used Substance: Unknown Preferred Language: Japanese Communication Ability: Unable Current Living Situation: Homeless Current Living Situation Comment: lives in homeless [facility] Feels Safe at Home: Yes Review of Systems Review of Systems: Unobtainable due to endotracheal tube Physical Exam Physical Exam: Constitutional: WD/WN, +[place] Hair, Sedated, on Vent, vitals as above, NAD Head: Normocephalic, Atraumatic Eyes: PERRL, +pupils dilated but reactive, conjunctivae normal, anicteric sclerae ENMT: external ear and nose normal, oropharynx obscured due to ET tube Neck: trachea midline, no thyromegaly normal visual inspection Respiratory: normal respiratory effort, lungs clear to auscultation, decreased breath sounds at based, no wheeze, rales, rhonchi. Normal insp/exp effort Cardiovascular: RRR, no murmur, no edema Vessels: no JVD or carotid bruit Chest: normal inspection of chest Abdomen: normal bowel sounds, soft, nontender, no hepatosplenomegaly Musculoskeletal: no cyanosis or clubbing, MSK unable to assess due to sedated status Skin: no rashes, warm and dry normal turgor Neurologic: unable to assess Psychiatric: sedated : Results & Data Results & Data ([facility]) Vital Signs (Past 12 Hours) Vital Signs Temp Pulse Resp BP Pulse Ox 10/04/21 12:00 102 H 20 165/98 H 96 10/04/21 11:30 105 H 20 180/109 H 95 10/04/21 11:00 103 H 20 175/109 H 94 10/04/21 10:56 102 H 10/04/21 10:33 20 10/04/21 10:30 108 H 18 174/112 H 93 10/04/21 10:15 115 H 18 92 10/04/21 10:08 116 H 18 95 10/04/21 10:00 102 H 37 H 139/95 93 10/04/21 09:59 99 H 31 H 145/94 H 92 10/04/21 09:56 109 H 23 94 10/04/21 09:44 37.2 C 119 H 25 H 165/110 H 95 Diagnostic Findings Chest X-Ray 10/04/21 09:52 SINGLE VIEW CHEST CLINICAL HISTORY: Change in mental status. Intubation. FINDINGS: An AP, portable, semierect chest radiograph is compared to study dated 08/04/2021. An endotracheal tube has been placed. The tip projects just below the thoracic inlet approximately 5.5 cm above the arabella. The cardiomediastinal silhouette is unremarkable. Airspace opacities are noted at the left lung base. No large pleural effusion or pneumothorax is seen. The bony thorax is grossly intact. IMPRESSION: 1. An endotracheal tube has been placed as above. 2. Airspace opacities at the left lung base could represent atelectasis versus an infectious/inflammatory pneumonitis. Clinical correlation will be required an d radiographic follow-up to resolution is recommended. ACT 112: Negative or not required by law. Electronically signed by: Tremaine Tovar M.D. 10/04/2021 10:[address] 10/04/21 09:[address] DOSE: 537.48 mGy.cm HISTORY: Altered mental status. TECHNIQUE: Multiaxial CT images of the head were performed without the use of intravenous contrast. Automated exposure control was utilized for this study. A dose lowering technique was utilized adhering to the principles of ALARA. Comparison: Head CT 08/04/2021. Findings: The paranasal sinuses and mastoid air cells are clear. The calvarium and skull base are intact. The ventricles and sulci are within normal limits. There is no mass, hematoma, midline shift, or acute infarct. Impression: No acute intracranial abnormality. ACT 112: Negative or not required by law. Electronically signed by: Marky Bob M.D. 10/04/2021 11:04 AM Medications Administered Medication List Propofol (Diprivan) 1,000 mg in 100 mls @ 10.512 mls/hr IV .[id number] [facility]; Protocol Stop: 10/07/21 09:59 Last Admin: 10/04/21 10:10 Dose: 20 mcg/kg/min, 10.5 mls/hr Documented by: [id number] Cosigned by: [id number] Discontinued Medications Piperacillin Sod/Tazobactam Sod (Zosyn) 4.5 gm in 120 mls @ 240 mls/hr IV NOW ONE Stop: 10/04/21 12:22 Last Admin: 10/04/21 12:05 Dose: 240 mls/hr Documented by: [id number] Miscellaneous (Rapid Sequence Induction Bag) Confirm Administered Dose 1 ea .ROUTE .STK-MED ONE Stop: 10/04/21 09:50 Last Admin: 10/04/21 10:06 Dose: 1 ea Documented by: [id number] Ondansetron HCl (Ondansetron Inj 2 Mg/Ml 2 Ml Vial) 4 mg IV NOW STA Stop: 10/04/21 09:53 Last Admin: 10/04/21 10:25 Dose: 4 mg Documented by: [id number] Propofol (Propofol Iv Emulsion 10 Mg/Ml 100 Ml Vial) Confirm Administered Dose 1,000 mg IV .STK-MED ONE Stop: 10/04/21 09:56 Last Admin: 10/04/21 10:21 Dose: Not Given Documented by: [id number] COVID-19 Results Results COVID-19 Adm Lab Results: RBC 4.91 M/uL (4.2-5.4) 10/04/21 WBC 13.46 K/uL (4.8-10.8) H 10/04/21 Hgb 16.1 g/dL (12.0-16.0) H 10/04/21 Hct 47.2 % (37-47) H 10/04/21 Plt Count 273 K/uL (130-400) 10/04/21 Neutrophils (%) (Auto) 81.9 % 10/04/21 Lymphocytes (%) (Auto) 11.1 % 10/04/21 Monocytes # (Auto) 0.87 K/uL (0.11-0.59) H 10/04/21 Eosinophils # (Auto) 0.02 K/uL (0-0.5) 10/04/21 Immature Granulocyte % (Auto) 0.3 % 10/04/21 Neutrophils # (Auto) 11.01 K/uL (1.4-6.5) H 10/04/21 Lymphocytes # (Auto) 1.50 K/uL (1.2-3.4) 10/04/21 Monocytes # (Auto) 0.87 K/uL (0.11-0.59) H 10/04/21 Eosinophils # (Auto) 0.02 K/uL (0-0.5) 10/04/21 Basophils # (Auto) 0.02 K/uL (0-0.2) 10/04/21 Immature Granulocyte # (Auto) 0.04 K/uL (0.00-0.02) H 10/04/21 Na 138 mmol/L (136-145) 10/04/21 K 2.9 mmol/L (3.5-5.1) L 10/04/21 Cl 104 mmol/L (98-107) 10/04/21 CO2 19 mmol/L (21-32) L 10/04/21 Anion Gap 15 (3-11) H 10/04/21 BUN 15 mg/dl (6-23) 10/04/21 Creatinine 0.86 mg/dl (0.6-1.2) 10/04/21 BUN/Creatinine Ratio 17.4 (10-20) 10/04/21 Glucose Level 161 mg/dl (70-99(Fasting)) H 10/04/21 Ca 10.0 mg/dl (8.5-10.1) 10/04/21 Total Bilirubin 0.9 mg/dl (0.2-1.0) 10/04/21 AST/SGOT 34 U/L (13-39) 10/04/21 ALT/SGPT 30 U/L (7-52) 10/04/21 Alkaline Phosphatase 82 U/L (34-104) 10/04/21 Total Protein 8.6 gm/dl (6.0-8.3) H 10/04/21 Albumin 4.5 gm/dl (3.4-5.0) 10/04/21 Globulin 4.1 gm/dl (2.5-4.0) H 10/04/21 Albumin/Globulin Ratio 1.1 (0.9-2) 10/04/21 Total CK 524 U/L (26-192) H 10/04/21 CRP 4.97 mg/dl (0-0.5) H 10/04/21 Procalcitonin 0.09 ng/ml (0-0.5) 10/04/21 PTT 27.9 Seconds (21.0-31.0) 10/04/21 INR 1.1 (0.9-1.1) 10/04/21 SARS-CoV-2, RNA, NAAT NEGATIVE (NEGATIVE) 10/04/21 ABG pH 7.23 (7.35-7.45) L 10/04/21 ABG pCO2 61 mmHg (35-46) H 10/04/21 ABG pO2 92 mmHg (80-95) 10/04/21 ABG HCO3 25 mmol/L (19-24) H 10/04/21 ABG O2 Saturation 96.2 % (90-95) H 10/04/21 ABG Base Excess -4.0 mEq/L (-9-1.8) 10/04/21 Chest X-Ray 10/04/21 Code Status & VTE Plan Code Status FULL CODE VTE Prophylaxis Plan VTE Prophylaxis will be ordered: Yes Supervising Physician Co-Signing Physician Notes 51-year-old lady with PMH of polysubstance abuse, COPD, BPD, bipolar disorder, hep C, narcolepsy presented to the ED 10/04 due to drug overdose. Patient was intubated and mechanically ventilated at bedside exam, per chart review, after receiving methadone clinic in the morning of the day of arrival, she returned to her homeless [facility] where she was found to be difficult to arouse and seizure- like activity/uncontrollable muscle movements are noted [not clear prior to or after Narcan dose], patient received Narcan and then became combative and was not making sense. EMS was called who gave her Ativan and ketamine, patient was foaming at mouth and lots of secretion with celebrating, hence was intubated in the ED. She was on propofol at bedside exam. Admitting EKG, CT head and CXR reviewed. Admitting labs reviewed. Acute drug overdose, UDS positive for multiple drugs, follow-up other UDS results. Mechanical ventilation per ICU. Concern of suicidal intent per chart review, follow-up when patient is more awake, consider psychiatry consult based on clinical evaluation. Concern of aspiration pneumonia given circumstances, Pro-Norman WNL but WBC elevated which could also be due to acute stress/drug overdose. Patient received IV Zosyn in the ED, continue with same. Monitor and replete electrolytes. Monitor creatinine kinase until plateaus/starts to trend down. Upon examination: GENERAL: Sedated/intubated on mechanical ventilation, NAD HEENT: No pallor, no icterus. Pupils equal, round and reactive to light. Oral mucosa moist. NECK: No JVD, no neck masses. HEART: S1 and S2 heard. Tachycardic. No murmur, no gallop. RESPIRATORY SYSTEM: Normal AP diameter. No accessory muscle use. No wheezing, no crackles. Decreased breath sounds bilaterally. ABDOMEN: Soft, bowel sounds present, no distention. CENTRAL NERVOUS SYSTEM: No facial droop. Speech is clear. Obeys simple commands. Moves extremities. EXTREMITIES: No edema, no erythema seen. Urinary catheter in situ with light yellow urine collection noted. I have seen and examined the patient and have discussed the case with the provider above. I agree with the assessment and plan as stated. (1) Pneumonia Laterality: left Lung location: lower lobe of lung Pneumonia type: due to unspecified organism Qualified Code(s): J18.9 - Pneumonia, unspecified organism
[2021-10-04] MEDS: POTASSIUM CHLORIDE / WTR 10 MEQ/100 ML PLCT IV SCH ×4 (12:35→15:35)
[2021-10-04] MEDS ORDERED: MIDAZOLAM HCL 1 MG/ML 2ML VIAL IV STA (12:40)
[2021-10-04 13:18] LABS: HCO3 ABG 25 mmol/L (19-24); Oxygen Saturation ABG 96.2 % (90-95); PCO2 ABG 61 mmHg (35-46); PO2 ABG 92 mmHg (80-95); pH ABG 7.23 (7.35-7.45)
[2021-10-04] MEDS ORDERED: ICU PROTOCOL FOR HYPERGLYCEMIA PRN (13:34)
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
[2021-10-04 14:13] LABS: Allen Test Pos (Pos)
--- NOTE | 2021-10-04 14:35 | Electrocardiogram Report ---
Test Reason : Blood Pressure : / mmHG Vent. Rate : 112 BPM Atrial Rate : 112 BPM P-R Int : 164 ms QRS Dur : 104 ms QT Int : 370 ms P-R-T Axes : 080 072 076 degrees QTc Int : 505 ms Poor data quality, interpretation may be adversely affected Sinus tachycardia Biatrial enlargement Nonspecific ST abnormality Abnormal ECG When compared with ECG of 04-AUG-2021 09:42, Nonspecific T wave abnormality now evident in Anterior leads Confirmed by Ayaan Lazo ([id number]) on 10/04/2021 2:35:13 PM Referred By: REFERRED SELF Confirmed By:Ayaan Lazo
[2021-10-04] MEDS: SODIUM CHLORIDE 0.9% 1000ML 1,000 ML IV SCH (14:40)
[2021-10-04] MEDS ORDERED: ALBUT/IPRATROP 3MG/0.5MG NEB 3 ML VIAL NEB SCH (15:00)
[2021-10-04] MEDS ORDERED: ALBUT/IPRATROP 3MG/0.5MG NEB 3 ML VIAL NEB PRN (15:12)
[2021-10-04] MEDS: PIPERACILLIN/TAZOBACTAM 4.5 GM in DEXTROSE 5% 100 ML IV SCH ×2 (15:16→23:53)
[2021-10-04] MEDS ORDERED: fentaNYL citrate 100 MCG/2 ML VIAL ONE (16:36)
[2021-10-04] MEDS: fentaNYL citrate 100 MCG/2 ML VIAL IV PRN ×2 (16:36→19:12)
[2021-10-04] MEDS ORDERED: ROCURONIUM BROMIDE 10 MG/ML 5 ML VIAL IV ONE (17:20)
--- NOTE | 2021-10-04 18:00 | Billing Data ---
Date of Service October 04, 2021 Coding Level of Care Code Critical Care 1st - mins
[2021-10-04 20:09] LABS: BUN Creatinine Ratio 14.1 (10-20); Est GFR (African American) 103.5 ml/min; Est GFR (Non-African American) 89.3 ml/min; Potassium 4.2 mmol/L (3.5-5.1)
[2021-10-04] MEDS: ENOXAPARIN INJ 40 MG/0.4 ML SYR SQ SCH (22:58)
[2021-10-05] MEDS: fentaNYL citrate 100 MCG/2 ML VIAL IV PRN ×2 (00:55→04:14)
[2021-10-05] MEDS: SODIUM CHLORIDE 0.9% 1000ML 1,000 ML IV SCH ×2 (02:31→13:58)
[2021-10-05] MEDS: propofoL 1,000 MG/100 ML VIAL IV SCH ×3 (02:32→08:32)
[2021-10-05 05:20] LABS: Basophils # (auto) 0.01 K/uL (0-0.2); Basophils % (auto) 0.1 %; Eosinophils # (auto) 0.09 K/uL (0-0.5); Hematocrit (blood only) 42.4 % (37-47); Hemoglobin 14.2 g/dL (12.0-16.0); Immature Granulocytes # (auto) 0.01 K/uL (0.00-0.02); Immature Granulocytes % (auto) 0.1 %; Lymphocytes # (auto) 3.24 K/uL (1.2-3.4); Lymphocytes % (auto) 36.6 %; Mean Corpuscular Hemoglobin 32.1 pg (25-34); Mean Corpuscular Hgb Conc 33.5 g/dL (32-36); Mean Corpuscular Volume 95.9 fL (80-100); Mean Platelet Volume 9.9 fL (7.4-10.4); Monocytes % (auto) 11.3 %; Neutrophils % (auto) 50.9 %; Platelet Count 230 K/uL (130-400); RDW Coefficient of Variation 13.5 % (11.5-14.5); RDW Standard Deviation 47.6 fL (36.4-46.3); Red Blood Count 4.42 M/uL (4.2-5.4); White Blood Count 8.85 K/uL (4.8-10.8)
[2021-10-05 05:30] LABS: iSTAT Allen Test Pass; iSTAT Art Bld Gas pCO2 Correct 32 mmHg (35-46); iSTAT Art Bld Gas pH Corrected 7.465 (7.35-7.45); iSTAT Arterial Blood Gas HCO3 23 meg/L (19-24); iSTAT Arterial Blood Gas pCO2 33 mmHg (35-46); iSTAT Arterial Blood Gas pH 7.46 (7.35-7.45); iSTAT Arterial Blood Gas pO2 63 mmHg (80-95); iSTAT Arterial Blood Gas pO2 C 61; iSTAT Carbon Dioxide 24 mmol/L (24-31); iSTAT FiO2 50 %; iSTAT Hematocrit 41 % (37-47); iSTAT Hemoglobin 13.9 g/dl (12.0-16.0); iSTAT Potassium 2.7 mmol/L (3.3-5.0); iSTAT Site R Radial; iSTAT Sodium 140 mmol/L (135-144)
[2021-10-05 05:38] LABS: Albumin Level 3.5 gm/dl (3.4-5.0); BUN Creatinine Ratio 15.1 (10-20); Bilirubin Direct 0.2 mg/dl (0-0.2); Bilirubin,Total 0.6 mg/dl (0.2-1.0); Calcium 8.9 mg/dl (8.5-10.1); Creatinine Clr Calc Pharmacy 104.8 ml/min; Est GFR (African American) 112.1 ml/min; Est GFR (Non-African American) 96.7 ml/min; Magnesium 2.1 mg/dl (1.7-2.4); Phosphorus 2.3 mg/dl (2.5-4.9); Total Protein 6.7 gm/dl (6.0-8.3)
[2021-10-05] MEDS: PIPERACILLIN/TAZOBACTAM 4.5 GM in DEXTROSE 5% 100 ML IV SCH (07:39)
--- NOTE | 2021-10-05 08:31 | XRay Report ---
SINGLE VIEW CHEST CLINICAL HISTORY: Respiratory failure. FINDINGS: An AP, portable, contiguous chest radiograph is compared to study dated 10/04/2021. The exami [facility] is degraded by portable technique and patient rotation. An endotracheal tube is unchanged in position. An enteric tube has been placed. The tip projects below the diaphragm and is not visualize d. The cardiomediastinal silhouette is unremarkable. Airspace opacities at the left lung base have pa rtially cleared from previous. The right lung appears clear. No large pleural effusion or pneumothora x is seen. The bony thorax is grossly intact. IMPRESSION: 1. An endotracheal tube is unchanged in position. 2. An enteric tube is new from previous. 3. Airspace opacities at the left lung base have partially cleared as compared to previous. ACT 112: Negative or not required by law. Electronically signed by: Tremaine Tovar M.D. 10/05/2021 8:29 AM
--- NOTE | 2021-10-05 09:09 | Critical Care Progress Note ---
Date of Service October 05, 2021 Assessment & Plan (1) Acute alteration in mental status: Plan: ICU Assessment and Plans Reason Critically Ill: 51 yo F with known history of polysubstance use admitted for AMS + seizure-like activity concerning for drug overdose. NEURO - CAM ICU: Negative Sedation: None Analgesia: Acetaminophen PRN AMS, resolved -Head CT negative for acute process -Suspect likely due to drug overdose -Urine methadone+, amphetamine+, MDMA+, THC+ -Urine salicylates neg, acetaminophen neg, opiates neg -Possible toxic alcohol ingestion- treatment to be guided by further workup/pending lab results -Now mentating at baseline -Psychiatry consult -1:1 observation -Home medications restarted- Topamax 25 mg daily, methadone 96 mg daily, gabapentin 800 mg TID daily, Prozac 20 mg daily CARDIAC - -EKG 10/04- sinus tachycardia HR 112 with QTC 505, no arrhythmia identified -Hemodynamically stable at present -Telemetry monitoring RESPIRATORY - Acute respiratory failure -CXR 10/04- left basilar opacity suggestive of potential pneumonia. Continue abx as mentioned below -ABG 10/04- pH 7.23, HCO3 25, pCO2 61- inadequate respiratory compensation of metabolic acidosis -ABG 10/05- improved, pH 7.46, pCO2 33, HCO3 23 -Extubated 10/05 without complication -Home Advair restarted GI - -Diet ordered -Maintenance IVF, can stop later today if PO intake adequate RENAL/ELECTROLYTES - Cr 0.73, stable Anion gap metabolic acidosis -BMP 10/04 AG 15, CO2 19, Cl 104, Na 138 -BMP 10/05 AG 7, CO2 25, Cl 107, Na 139 -Ethyl alcohol level wnl -Serum osmolality 288, wnl -May be secondary to toxic alcohol ingestion Hypokalemia -2.7 on admission, likely secondary to drug overdose -Repleted with IV potassium to 3.0 -Expected to improve with PO intake - No concerns at this time Tapia removed 10/05 ENDO - -BSG 132 on admission, no known history of diabetes -Suspect mild hyperglycemia 2/2 physiologic stress HEME - -Hgb 14.1, stable -Trend CBC ID - COVID negative Possible bacterial pneumonia -CXR 10/04- left basilar opacity suggestive of possible PNA -WBC 13.5 to 8.9, ESR 55, CRP 5, procalcitonin negative -Empiric Zosyn switched to ceftriaxone + doxycycline, will do total of 7x days abx therapy INTEGUMENTARY No discernible track xiong suggestive of drug use identified LINES/IV ACCESS - PIVs intact Tapia DVT PROPHYLAXIS - Lovenox 40 mg daily Stable for downgrade to medical/telemetry (2) Acute drug overdose: (3) Hypokalemia: (4) On mechanically assisted ventilation: Admission and Anticipated Discharge Date Admission Date: October 04, 2021 Supervising Physician Co-Signing Physician Notes Dr. Person was resident physician during care of patient. I separately evaluated patient for rodriguez portions of the history and the exam. I was present during the critical portion of medical decision making, and I discussed the case with the resident. I generally agree with the findings and plan. Liberated from ventilator this morning. Prolonged qTc presumptively secondary to medications: Methadone. Will de-escalate antibiotics from Zosyn to ceftriaxone and doxycycline for 7 days total duration effective therapy. Stable for downgrade out of ICU to med telemetry med-tele. 1:1 sitter for possible SI: not active plans, mental health consulted. Dosing of methadone confirmed by pharmacy, will restart home medications. Stable for downgrade out of ICU Subjective Overnight pt was agitated about her endotracheal tube in place but responded we ll to redirection. Seen this morning shortly before her extubation. Shook head when questioned if anything else was bothering her, appeared to deny any complaints. Nodded when I asked if the tube was what was bothering her. Review of Systems Review of Systems: Per subjective Physical Exam Physical Exam: Constitutional: disheveled, intubated but awake and responsive Head: Normocephalic, Atraumatic Eyes: PERRL, +pupils dilated but reactive, conjunctivae normal, anicteric sclerae ENMT: external ear and nose normal, oropharynx obscured due to ET tube, unable to assess dentition Neck: trachea appears midline, normal visual inspection Respiratory: intubated, CTAB, symmetric chest rise and fall, no wheezes or rhonchi, no intercostal retractions or increased work of breathing Cardiovascular: RRR, normal S1, S2, no murmur, no peripheral edema b/l Abdomen: soft, nontender, nondistended no hepatosplenomegaly, normoactive bowel sounds Musculoskeletal: no cyanosis or clubbing, normal bulk and tone of b/l UE and LE, bunions on b/l feet without warmth Skin: no rashes, warm and dry, no track xiong observed of b/l cubital fossae or distal LE or neck Neurologic: awake, moving all extremities, responds to commands, pupillary reflexes intact Results & Data Results & Data ([facility]) Vital Signs (Past 12 Hours) Vital Signs Temp Pulse Resp BP Pulse Ox 10/05/21 08:00 76 26 H 135/86 94 10/05/21 07:32 73 18 93 10/05/21 07:30 66 18 121/84 93 10/05/21 07:00 67 18 123/87 94 10/05/21 06:00 59 L 18 114/80 93 10/05/21 05:30 59 L 18 107/76 92 10/05/21 05:07 18 10/05/21 05:00 59 L 22 110/73 93 10/05/21 04:30 57 L 22 102/73 93 10/05/21 04:00 60 22 103/69 95 10/05/21 03:48 56 L 22 93 10/05/21 03:30 57 L 22 91/65 L 93 10/05/21 03:00 54 L 22 90/66 L 92 10/05/21 02:30 58 L 22 92/67 L 91 10/05/21 02:00 59 L 22 92/67 L 92 10/05/21 01:30 62 22 92/64 L 92 10/05/21 01:00 63 22 96/73 L 95 10/05/21 00:00 36.4 C L 59 L 22 98/74 L 96 10/04/21 23:30 57 L 22 98/72 L 96 10/04/21 23:10 59 L 23 95 10/04/21 23:00 59 L 22 95/72 L 95 10/04/21 22:00 61 22 95/73 L 95 10/04/21 21:30 63 22 96/75 L 95 Resident Activity Tracking Resident Involvement: Resident Care Provided Care Provided: Adult Hospital Medicine
[2021-10-05] MEDS ORDERED: POTASSIUM PHOS 3 MMOL/1 ML INFUSION IV STA (09:24)
[2021-10-05] MEDS ORDERED: POTASSIUM CHLORIDE / WTR 10 MEQ/100 ML PLCT IV SCH (09:30)
[2021-10-05] MEDS ORDERED: POTASSIUM PHOSPHATE 15 MMOL in DEXTROSE 5% 250 ML IV ONE (10:00)
[2021-10-05] MEDS ORDERED: cefTRIAXone SODIUM 1,000 MG in DEXTROSE 5% 50 ML IV SCH (10:15)
[2021-10-05] MEDS: cefTRIAXone SODIUM 2,000 MG in DEXTROSE 5% 50 ML IV SCH (10:45)
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
--- NOTE | 2021-10-05 13:43 | Hospitalist Progress Note ---
Date of Service October 05, 2021 Assessment & Plan (1) Acute drug overdose: (2) Polysubstance abuse: (3) On mechanically assisted ventilation: (4) Delirium: (5) Hypokalemia: (6) Pneumonia: Plan: This is a 51-year-old female who has a significant past medical history of COPD, hepatitis C, narcolepsy, borderline personality disorder, bipolar disorder, depression, polysubstance abuse who presents to ED 10/04 after [facility] after returning from her methadone clinic. Urine culture positive for methadone, amphetamine, MDMA and THC although patient denies drug use. Acute drug overdose Poly Substance abuse -Urine drug screen + methadone, amphetamine, MDMA, and THC -Patient denies drug use, claims accidental exposure -will continue to monitor on telemetry Possible asp pneumonia CXR concerning for pneumonia s/p zosyn upon admission, now on doxycycline and ceftriaxone Hypokalemia continue repletion repeat BMP again later today Borderline Personality disorder Bipolar Appreciate psychiatry input. continue suicide precauation, 1-1 sitter, patient NOT allowed to leave AMA currently COPD continue nebs prn no acute exac DVT ppx: SQ lovenox Transfer to telemetry/PCU Admission and Anticipated Discharge Date Admission Date: October 04, 2021 Subjective Patient with no recollection of events Remembered getting a ride to methadone clinic and receiving her methadone Denies drug use. "I don't know how my urine is positive for those drugs!" Claims maybe she got exposed accidentally. When told that used needles, a scale and marijuana was found among her things, her response "it's a homeless [facility], of course there will be needles there" Denies thoughts of self harm Physical Exam Physical Exam: Appears dishevelled, no acute distress, answers are evasive Respiratory: breathing comfortably, no wheezing/rhonchi/rales Cardiovascular: bradycardic (HR 50-60s on telemetry), no murmurs/rubs Gastrointestinal (Abdomen): soft, non tender, non distended Musculoskeletal: no edema Neurologic: awake, alert, spontaneously moving extremities Psychiatric: answers are evasive, speech somewhat circumferential Results & Data Results & Data ([facility]) Vital Signs (Past 12 Hours) Vital Signs Temp Pulse Pulse Resp BP BP Pulse Ox 10/05/21 11:06 36.4 C L 56 L 13 110/73 91 10/05/21 08:00 36.6 C 76 26 H 135/86 94 10/05/21 07:32 73 18 93 10/05/21 07:30 66 18 121/84 93 10/05/21 07:00 67 18 123/87 94 10/05/21 06:00 59 L 18 114/80 93 10/05/21 05:30 59 L 18 107/76 92 10/05/21 05:07 18 10/05/21 05:00 59 L 22 110/73 93 10/05/21 04:30 57 L 22 102/73 93 10/05/21 04:00 60 22 103/69 95 10/05/21 03:48 56 L 22 93 10/05/21 03:30 57 L 22 91/65 L 93 10/05/21 03:00 54 L 22 90/66 L 92 10/05/21 02:30 58 L 22 92/67 L 91 10/05/21 02:00 59 L 22 92/67 L 92 Laboratory Results Short CBC 10/05/21 Range/Units 04:37 WBC 8.85 (4.8-10.8) K/uL Hgb 14.2 (12.0-16.0) g/dL Hct 42.4 (37-47) % Plt Count 230 (130-400) K/uL BMP 10/04/21 10/05/21 19:12 04:37 Sodium 136 139 Potassium 4.2 D 3.0 L D Chloride 105 107 Carbon Dioxide 25 25 BUN 11 11 Creatinine 0.78 0.73 Glucose 110 H 75 Calcium 9.0 8.9 Liver Function 10/05/21 Range/Units 04:37 Total Bilirubin 0.6 (0.2-1.0) mg/dl Direct Bilirubin 0.2 (0-0.2) mg/dl AST 29 (13-39) U/L ALT 23 (7-52) U/L Alkaline Phosphatase 62 (34-104) U/L Albumin 3.5 (3.4-5.0) gm/dl Medications Administered Current Inpatient Medications Acetaminophen (Acetaminophen 325 Mg Tab) 650 mg PO Q4H PRN PRN Reason: Pain Stop: 11/04/21 11:21 Albuterol (Albut/Ipratrop 3mg/0.5mg Neb 3 Ml Vial) 3 ml NEB Q4R PRN; Protocol PRN Reason: shortness of breath Stop: 11/03/21 18:59 Doxycycline Hyclate (Doxycycline Hyclate 100 Mg Cap) 100 mg PO BID [facility] Stop: 10/12/21 20:59 Enoxaparin Sodium (Enoxaparin Inj 40 Mg/0.4 Ml Syr) 40 mg SQ Q24H [facility] Stop: 11/03/21 21:59 Last Admin: 10/04/21 22:58 Dose: 40 mg Documented by: Fluoxetine HCl (Fluoxetine Hcl 20 Mg Cap) 20 mg PO DAILY [facility] Stop: 11/04/21 13:59 Fluticasone/Vilanterol (Fluticasone/Vilanterol 100/25mcg 14 Puffs/Inhaler) 1 puffs INH DAILY [facility] Stop: 11/04/21 13:59 Gabapentin (Gabapentin 800 Mg Tab) 800 mg PO TID [facility] Stop: 11/04/21 20:59 Sodium Chloride (Nss 1000ml) 1,000 mls @ 80 mls/hr IV .[id number] [facility] Stop: 11/03/21 13:33 Last Admin: 10/05/21 02:31 Dose: 80 mls/hr Documented by: Potassium Chloride (K Vladimir / Wtr) 10 meq in 100 mls @ 100 mls/hr IV Q1H [facility]; Protocol Stop: 10/05/21 16:44 Ceftriaxone Sodium 2,000 mg/ (Dextrose) 70 mls @ 140 mls/hr IV Q24H [facility]; Protocol Stop: 10/12/21 10:14 Last Infusion: 10/05/21 11:15 Dose: Infused Documented by: Methadone HCl (Methadone Oral Soln 2 Mg/Ml) 96 mg PO DAILY [facility]; Protocol Stop: 10/19/21 13:59 Miscellaneous (Icu Protocol For Hyperglycemia) 1 ea N/A PRN PRN; Protocol PRN Reason: Hyperglycemia Protocol Stop: 10/06/21 13:33 Topiramate (Topiramate 25 Mg Tab) 25 mg PO DAILY [facility] Stop: 11/04/21 13:59 (1) Pneumonia Laterality: left Lung location: lower lobe of lung Pneumonia type: due to unspecified organism Qualified Code(s): J18.9 - Pneumonia, unspecified organism
[2021-10-05] MEDS: POTASSIUM CHLORIDE / WTR 10 MEQ/100 ML PLCT IV SCH ×4 (13:55→17:41)
[2021-10-05] MEDS: FLUoxetine HCL 20 MG CAP PO SCH (13:55)
[2021-10-05] MEDS: METHADONE ORAL SOLN 2 MG/ML PO SCH (13:55)
[2021-10-05] MEDS: FLUTICASONE/VILANTEROL 100/25MCG 14 PUFFS/INHALER INH SCH (13:55)
[2021-10-05] MEDS: TOPIRAMATE 25 MG TAB PO SCH (13:56)
[2021-10-05] MEDS: ACETAMINOPHEN 325 MG TAB PO PRN ×2 (13:59→21:13)
--- NOTE | 2021-10-05 14:06 | Billing Data ---
Date of Service October 05, 2021 Coding Level of Care Code 35871 Subseq Hosp Care Lvl 3
[2021-10-05 18:22] LABS: BUN Creatinine Ratio 14.5 (10-20); Calcium 8.4 mg/dl (8.5-10.1); Creatinine Clr Calc Pharmacy 123.8 ml/min; Est GFR (African American) 118.5 ml/min; Est GFR (Non-African American) 102.2 ml/min; Magnesium 2.1 mg/dl (1.7-2.4); Phosphorus 3.4 mg/dl (2.5-4.9); Potassium 3.7 mmol/L (3.5-5.1)
[2021-10-05] MEDS: GABAPENTIN 800 MG TAB PO SCH (20:14)
[2021-10-05] MEDS: DOXYCYCLINE HYCLATE 100 MG CAP PO SCH (20:15)
[2021-10-05] MEDS: ENOXAPARIN INJ 40 MG/0.4 ML SYR SQ SCH (21:09)
[2021-10-06] MEDS: SODIUM CHLORIDE 0.9% 1000ML 1,000 ML IV SCH ×2 (02:16→17:43)
[2021-10-06] MEDS: ACETAMINOPHEN 325 MG TAB PO PRN ×3 (06:31→20:29)
[2021-10-06] MEDS ORDERED: hydrOXYzine HCl 10 MG TAB PO STA (06:46)
[2021-10-06] MEDS ORDERED: hydrOXYzine HCl 10 MG TAB PO PRN (07:29)
[2021-10-06 08:28] LABS: Basophils # (auto) 0.01 K/uL (0-0.2); Basophils % (auto) 0.2 %; Eosinophils # (auto) 0.07 K/uL (0-0.5); Eosinophils % (auto) 1.1 %; Hematocrit (blood only) 43.6 % (37-47); Hemoglobin 14.4 g/dL (12.0-16.0); Immature Granulocytes # (auto) 0.01 K/uL (0.00-0.02); Immature Granulocytes % (auto) 0.2 %; Lymphocytes # (auto) 1.55 K/uL (1.2-3.4); Lymphocytes % (auto) 23.4 %; Mean Corpuscular Hemoglobin 32.2 pg (25-34); Mean Corpuscular Volume 97.5 fL (80-100); Mean Platelet Volume 10.3 fL (7.4-10.4); Monocytes # (auto) 0.57 K/uL (0.11-0.59); Monocytes % (auto) 8.6 %; Neutrophils % (auto) 66.5 %; Platelet Count 217 K/uL (130-400); RDW Coefficient of Variation 13.5 % (11.5-14.5); RDW Standard Deviation 48.3 fL (36.4-46.3); Red Blood Count 4.47 M/uL (4.2-5.4); White Blood Count 6.61 K/uL (4.8-10.8)
[2021-10-06] MEDS: FLUoxetine HCL 20 MG CAP PO SCH (08:49)
[2021-10-06] MEDS: FLUTICASONE/VILANTEROL 100/25MCG 14 PUFFS/INHALER INH SCH (08:49)
[2021-10-06] MEDS: DOXYCYCLINE HYCLATE 100 MG CAP PO SCH ×2 (08:50→20:28)
[2021-10-06] MEDS: GABAPENTIN 800 MG TAB PO SCH ×3 (08:50→20:27)
[2021-10-06] MEDS: TOPIRAMATE 25 MG TAB PO SCH (08:50)
[2021-10-06] MEDS ORDERED: SACCHAROMYCES BOULARDII 250 MG CAP PO SCH (09:00)
[2021-10-06 09:14] LABS: Calcium 8.5 mg/dl (8.5-10.1); Creatinine Clr Calc Pharmacy 142.4 ml/min; Magnesium 1.9 mg/dl (1.7-2.4); Potassium 3.4 mmol/L (3.5-5.1)
[2021-10-06] MEDS: PATIENT'S OWN CONTROLLED MED 1 PO SCH (10:10)
[2021-10-06] MEDS: METHADONE ORAL SOLN 2 MG/ML PO SCH (10:11)
[2021-10-06] MEDS: cefTRIAXone SODIUM 2,000 MG in DEXTROSE 5% 50 ML IV SCH (10:14)
--- NOTE | 2021-10-06 10:58 | Hospitalist Progress Note ---
Date of Service October 06, 2021 Assessment & Plan (1) Acute drug overdose: (2) Polysubstance abuse: (3) On mechanically assisted ventilation: (4) Delirium: (5) Hypokalemia: (6) Pneumonia: Plan: This is a 51-year-old female who has a significant past medical history of COPD, hepatitis C, narcolepsy, borderline personality disorder, bipolar disorder, depression, polysubstance abuse who presents to ED 10/04 after [facility] at [facility] after returning from her methadone clinic. Urine culture positive for methadone, amphetamine, MDMA and THC. Acute drug overdose Poly Substance abuse -Urine drug screen + methadone, amphetamine, MDMA, and THC -Patient now admits to using meth -not interested in rehab -Management of withdrawal symptoms limited due to her bradycardia and prolonged QTc. Avoid vistaril. Unable to use clonidine. Will add ativan 0.5mg TID PRN for anxiety/restlessness pending evaluation by psychiatry again today Possible asp pneumonia CXR concerning for pneumonia s/p zosyn upon admission, now on doxycycline and ceftriaxone day # 3 antibiotics Hypokalemia normalized Prolonged QTc -Last EKG 10/04 during acute intoxication and with electrolyte abnormalities showed QTc of 505, will repeat now Borderline Personality disorder Bipolar -Appreciate psychiatry input. continue suicide precaution, 1-1 sitter, patient NOT allowed to leave AMA currently until re-assessed by psychiatry today -Patient's Topamax, Gabapentin and fluoxetine were resumed by ICU 10/05. With her withdrawal from meth currently, I am hesitant to withhold her psychotropic medications even despite her prolonged QTc. Her QTc is chronically prolonged (EKG from 08/04/21 showed QTc 475). Will monitor on telemetry, will avoid any additional QTc prolonging medications. -Further optimization of psychotropic medications per psychiatry COPD continue nebs prn no acute exac DVT ppx: SQ lovenox Dispo: Patient is homeless, will ask for CM consult. Currently on telemetry/PCU Admission and Anticipated Discharge Date Admission Date: October 04, 2021 Subjective Feels very anxious, received 1 dose vistaril this morning which did not help Per RN, her gabapentin did help somewhat Patient now admits to doing "one line of meth only" Not interested in going to rehab. "I already know what I need to do, I'm never doing meth again!" Physical Exam Physical Exam: restless, disheveled, non toxic Respiratory: breathing comfortably, no wheezing/rhonchi/rales Cardiovascular: bradycardic (HR 50s on telemetry) no murmurs/rubs/gallops Gastrointestinal (Abdomen): soft, non tender, non distended Musculoskeletal: no edema Neurologic: awake, alert, spontaneously moving extremities Psychiatric: restless, anxious Results & Data Results & Data ([facility]) Vital Signs (Past 12 Hours) Vital Signs Temp Pulse Resp BP Pulse Ox 10/06/21 10:43 36.6 C 56 L 20 126/75 95 10/06/21 07:37 37.1 C 66 17 120/76 94 10/06/21 03:01 36.8 C 63 18 105/73 91 Laboratory Results Short CBC 10/06/21 Range/Units 08:05 WBC 6.61 (4.8-10.8) K/uL Hgb 14.4 (12.0-16.0) g/dL Hct 43.6 (37-47) % Plt Count 217 (130-400) K/uL BMP 10/05/21 10/06/21 17:51 08:05 Sodium 139 139 Potassium 3.7 D 3.4 L Chloride 109 H 110 H Carbon Dioxide 26 24 BUN 10 9 Creatinine 0.69 0.60 Glucose 72 114 H Calcium 8.4 L 8.5 Medications Administered Current Inpatient Medications Acetaminophen (Acetaminophen 325 Mg Tab) 650 mg PO Q4H PRN PRN Reason: Pain Stop: 11/04/21 11:21 Last Admin: 10/06/21 06:31 Dose: 650 mg Documented by: Albuterol (Albut/Ipratrop 3mg/0.5mg Neb 3 Ml Vial) 3 ml NEB Q4R PRN; Protocol PRN Reason: shortness of breath Stop: 11/03/21 18:59 Doxycycline Hyclate (Doxycycline Hyclate 100 Mg Cap) 100 mg PO BID [facility] Stop: 10/12/21 20:59 Last Admin: 10/06/21 08:50 Dose: 100 mg Documented by: Enoxaparin Sodium (Enoxaparin Inj 40 Mg/0.4 Ml Syr) 40 mg SQ Q24H [facility] Stop: 11/03/21 21:59 Last Admin: 10/05/21 21:09 Dose: 40 mg Documented by: Fluoxetine HCl (Fluoxetine Hcl 20 Mg Cap) 20 mg PO DAILY [facility] Stop: 11/04/21 13:59 Last Admin: 10/06/21 08:49 Dose: 20 mg Documented by: Fluticasone/Vilanterol (Fluticasone/Vilanterol 100/25mcg 14 Puffs/Inhaler) 1 puffs INH DAILY [facility] Stop: 11/04/21 13:59 Last Admin: 10/06/21 08:49 Dose: 1 puffs Documented by: Gabapentin (Gabapentin 800 Mg Tab) 800 mg PO TID [facility] Stop: 11/04/21 20:59 Last Admin: 10/06/21 08:50 Dose: 800 mg Documented by: Sodium Chloride (Nss 1000ml) 1,000 mls @ 80 mls/hr IV .[id number] [facility] Stop: 11/03/21 13:33 Last Admin: 10/06/21 02:16 Dose: 80 mls/hr Documented by: Ceftriaxone Sodium 2,000 mg/ (Dextrose) 70 mls @ 140 mls/hr IV Q24H [facility]; Protocol Stop: 10/12/21 10:14 Last Admin: 10/06/21 10:14 Dose: 140 mls/hr Documented by: Lorazepam (Lorazepam 0.5 Mg Tab) 0.5 mg PO TID PRN PRN Reason: Anxiety Stop: 11/05/21 10:55 Methadone HCl (Methadone Oral Soln 2 Mg/Ml) 96 mg PO DAILY [facility]; Protocol Stop: 10/19/21 13:59 Last Admin: 10/06/21 10:11 Dose: 96 mg Documented by: Miscellaneous (Icu Protocol For Hyperglycemia) 1 ea N/A PRN PRN; Protocol PRN Reason: Hyperglycemia Protocol Stop: 10/06/21 13:33 Miscellaneous (Remove Nicoderm Patch) 1 ea N/A DAILY@0859 [facility] Stop: 11/06/21 08:58 Nicotine (Nicotine 21 Mg/24 Hr Tdsy) 21 mg TD QAM [facility] Stop: 11/05/21 10:59 Non-Formulary Medication (Patient's Own Controlled Med 1) 1 ea PO DAILY [facility] Stop: 10/20/21 08:59 Last Admin: 10/06/21 10:10 Dose: Not Given Documented by: Saccharomyces Boulardii (Saccharomyces Boulardii 250 Mg Cap) 250 mg PO DAILY [facility] Stop: 11/05/21 08:59 Last Admin: 10/06/21 10:11 Dose: 250 mg Documented by: Topiramate (Topiramate 25 Mg Tab) 25 mg PO DAILY [facility] Stop: 11/04/21 13:59 Last Admin: 10/06/21 08:50 Dose: 25 mg Documented by: (1) Pneumonia Laterality: left Lung location: lower lobe of lung Pneumonia type: due to unspecified organism Qualified Code(s): J18.9 - Pneumonia, unspecified organism
[2021-10-06] MEDS ORDERED: POTASSIUM CHLORIDE CRTAB 20 MEQ TABCR PO STA (11:12)
[2021-10-06] MEDS ORDERED: MAGNESIUM SULFATE / D5W 1 GM/100 ML BAG IV ONE (11:13)
[2021-10-06] MEDS: NICOTINE 21 MG/24 HR TDSY TD SCH (11:48)
[2021-10-06] MEDS: SACCHAROMYCES BOULARDII 250 MG CAP PO SCH (20:27)
[2021-10-06] MEDS: ENOXAPARIN INJ 40 MG/0.4 ML SYR SQ SCH (20:59)
[2021-10-06 21:16] LABS: Adenovirus F 40/41 PCR Not Detected (NotDetected); Astrovirus PCR Not Detected (NotDetected); Campylobacter PCR Not Detected (NotDetected); Clostridium diff Toxin A/B PCR Not Detected (NotDetected); Cryptosporidium PCR Not Detected (NotDetected); Cyclospora cayetanensis PCR Not Detected (NotDetected); Entamoeba histolytica PCR Not Detected (NotDetected); Enteroaggregative E.coli(EAEC) Not Detected (NotDetected); Enteropathogenic E.coli (EPEC) Not Detected (NotDetected); Enterotoxigenic E.coli (ETEC) Not Detected (NotDetected); Giardia lamblia PCR Not Detected (NotDetected); Norovirus GI/GII PCR Not Detected (NotDetected); Plesiomonas shigelloides PCR Not Detected (NotDetected); Rotavirus A PCR Not Detected (NotDetected); Salmonella PCR Not Detected (NotDetected); Sapovirus PCR Not Detected (NotDetected); Shiga-like Toxin E.coli (STEC) Not Detected (NotDetected); Shigella/Enteroinvasive E.coli Not Detected (NotDetected); Vibrio cholerae PCR Not Detected (NotDetected); Vibrio species PCR Not Detected (NotDetected); Yersinia enterocolitica PCR Not Detected (NotDetected)
[2021-10-06] MEDS: LOPERAMIDE HCL 2 MG CAP PO PRN (21:51)
[2021-10-07] MEDS: ACETAMINOPHEN 325 MG TAB PO PRN ×4 (03:23→19:51)
[2021-10-07 04:50] LABS: Basophils # (auto) 0.01 K/uL (0-0.2); Basophils % (auto) 0.2 %; Eosinophils # (auto) 0.07 K/uL (0-0.5); Eosinophils % (auto) 1.2 %; Hematocrit (blood only) 40.9 % (37-47); Hemoglobin 13.4 g/dL (12.0-16.0); Immature Granulocytes # (auto) 0.01 K/uL (0.00-0.02); Immature Granulocytes % (auto) 0.2 %; Lymphocytes # (auto) 2.78 K/uL (1.2-3.4); Lymphocytes % (auto) 47.6 %; Mean Corpuscular Hemoglobin 32.6 pg (25-34); Mean Corpuscular Hgb Conc 32.8 g/dL (32-36); Mean Corpuscular Volume 99.5 fL (80-100); Mean Platelet Volume 10.2 fL (7.4-10.4); Monocytes # (auto) 0.57 K/uL (0.11-0.59); Monocytes % (auto) 9.8 %; Platelet Count 221 K/uL (130-400); RDW Coefficient of Variation 13.2 % (11.5-14.5); RDW Standard Deviation 48.2 fL (36.4-46.3); Red Blood Count 4.11 M/uL (4.2-5.4); White Blood Count 5.84 K/uL (4.8-10.8)
[2021-10-07 04:54] LABS: BUN Creatinine Ratio 11.8 (10-20); Calcium 8.3 mg/dl (8.5-10.1); Creatinine Clr Calc Pharmacy 125.7 ml/min; Est GFR (Non-African American) 102.7 ml/min; Magnesium 1.8 mg/dl (1.7-2.4); Potassium 3.4 mmol/L (3.5-5.1)
[2021-10-07] MEDS: LOPERAMIDE HCL 2 MG CAP PO PRN ×2 (05:53→19:51)
[2021-10-07] MEDS: SODIUM CHLORIDE 0.9% 1000ML 1,000 ML IV SCH ×2 (05:55→19:30)
[2021-10-07] MEDS: LORazepam 0.5 MG TAB PO PRN ×3 (06:25→23:24)
[2021-10-07] MEDS: METHADONE ORAL SOLN 2 MG/ML PO SCH (08:13)
[2021-10-07] MEDS: GABAPENTIN 800 MG TAB PO SCH ×3 (08:14→19:51)
[2021-10-07] MEDS: NICOTINE 21 MG/24 HR TDSY TD SCH (08:14)
[2021-10-07] MEDS: DOXYCYCLINE HYCLATE 100 MG CAP PO SCH ×2 (08:15→19:51)
[2021-10-07] MEDS: FLUoxetine HCL 20 MG CAP PO SCH (08:15)
[2021-10-07] MEDS: SACCHAROMYCES BOULARDII 250 MG CAP PO SCH ×2 (08:15→19:52)
[2021-10-07] MEDS: TOPIRAMATE 25 MG TAB PO SCH (08:15)
[2021-10-07] MEDS: FLUTICASONE/VILANTEROL 100/25MCG 14 PUFFS/INHALER INH SCH (08:16)
[2021-10-07] MEDS ORDERED: LORazepam 0.5 MG TAB PO STA (08:22)
[2021-10-07] MEDS: PATIENT'S OWN CONTROLLED MED 1 PO SCH (08:22)
[2021-10-07] MEDS: POTASSIUM CHLORIDE CRTAB 20 MEQ TABCR PO SCH ×2 (08:30→19:50)
[2021-10-07] MEDS: cefTRIAXone SODIUM 2,000 MG in DEXTROSE 5% 50 ML IV SCH (10:33)
--- NOTE | 2021-10-07 12:01 | Psychiatric Progress Note ---
Date of Service October 07, 2021 Impression / Recommendations Impression This is a 51 yo admitted medically following a polysubstance overdose, initially unclear if intentional or accidental. Diagnostically she has a history of polysubstance use disorder on methadone and UDS on admission positive for MDMA and methamphetamine in addition to methadone for opioid use disorder. 10/07/21: continues to deny SI, AMS is cleared. Some protracted withdrawal. (1) Acute drug overdose: (2) Acute alteration in mental status: september d/c 1-on- no indication for acute inpatient psychiatric care she is declining rehab but signed [facility] for communication with outpatient providers, can confirm appointments in am reviewed with patient risks of benzos with opiates/methadone specifically re: risk of respiratory depression/ if would use on the street, etc. She is aware of risks associated with meth and agrees to abstain. Risk Factors Assessment Do You Have Access To A Gun?: No Interval History Identifying Information 51 yo woman with a history of depression, BPD, trauma, and polysubstance use admitted medically 10/04/21 after suspected polysubstance overdose requiring Narcan. Chief Complaint "I'm feeling better now, no I typically use cocaine but around here there is more meth, I won't do that again". Review of Systems Notes denies MAR, N, V, tremor at this time. Subjective Subjective Patient was seen & assessed and interval progress reviewed with nursing and hospitalist. Patient has been much clearer, completed PHQ-9 yesterday with liaison. Has consistently denied SI over multiple shifts and reliably described her drug use. She does not want rehab and is agreeable to continue with methadone clinic and [facility] (already had intake). She is aware that higher level of substance use services are recommended but "this isn't my first rodeo and I know what I'll do." She did require 0.5 mg Ativan X2 this am for increase trem ulousness. Physical Exam Psychiatric Orientation: alert and oriented x 3 Apperance: appropriately dressed Eye Contact: good eye contact Motor Behavior: no abnormal motor movements Speech: normal rate/rhythm/volume of speech Affect: euthymic affect Mood: no depressed mood Thought Process: linear/logical thought process Thought Content: reality based without delusions Suicidal Thoughts: denies suicidal thoughts Homicidal Thoughts: denies homicidal thoughts Hallucinations: no auditory hallucinations and no visual hallucinations Cognition: recent memory grossly intact, remote memory grossly intact, attention grossly intact and language grossly intact Insight: + limited insight Judgement: + limited judgement Vital Signs (Past 24 Hours) Last Vital Signs Temp 36.5 C 10/07/21 06:52 Pulse 61 10/07/21 08:42 Resp 18 10/07/21 06:52 BP 138/98 10/07/21 06:52 Pulse Ox 93 10/07/21 06:52 Results & Data ([facility]) Laboratory Results Laboratory Results - last 24 hr 10/06/21 10/07/21 10/07/21 18:10 04:09 04:09 WBC 5.84 RBC 4.11 L Hgb 13.4 Hct 40.9 MCV 99.5 MCH 32.6 MCHC 32.8 RDW Std Deviation 48.2 H RDW Coeff of Stephanie 13.2 Plt Count 221 MPV 10.2 Immature Gran % (Auto) 0.2 Neut % (Auto) 41.0 Lymph % (Auto) 47.6 Otero % (Auto) 9.8 Eos % (Auto) 1.2 Baso % (Auto) 0.2 Neut # (Auto) 2.40 Lymph # (Auto) 2.78 Otero # (Auto) 0.57 Eos # (Auto) 0.07 Baso # (Auto) 0.01 Immature Gran # (Auto) 0.01 Sodium 140 Potassium 3.4 L Chloride 112 H Carbon Dioxide 25 Anion Gap 3 BUN 8 Creatinine 0.68 Est Cr Clr Drug Dosing 125.7 Est GFR ( Amer) 119.0 Est GFR (Non-Af Amer) 102.7 BUN/Creatinine Ratio 11.8 Glucose 112 H Calcium 8.3 L Magnesium 1.8 Stl C. cayetanensis PCR Not Detected Stool Rotavirus A PCR Not Detected Stl Adenov F 40/41 PCR Not Detected Stool Astrovirus (PCR) Not Detected Stool Campylobacter PCR Not Detected Stl C. diff Tox A/B PCR Not Detected Stool Cryptosporidium PCR Not Detected Stl E.coli Shiga Tox PCR Not Detected Stl Enterotoxigenic E PCR Not Detected Stool EPEC (PCR) Not Detected Stool EAEC (PCR) Not Detected Stl E. histolytica PCR Not Detected Stool Giardia Lamblia PCR Not Detected Stool Salmonella PCR Not Detected Stool Sapovirus (PCR) Not Detected Stl P. shigelloides PCR Not Detected Stl Shigella/EIEC PCR Not Detected St Y.enterocolitica PCR Not Detected Stool Vibrio (PCR) Not Detected Stl Vibrio cholerae PCR Not Detected Stl Norovirus GI/GII PCR Not Detected Current Inpatient Medications Current Inpatient Medications: Current Inpatient Medications Acetaminophen (Acetaminophen 325 Mg Tab) 650 mg PO Q4H PRN PRN Reason: Pain Stop: 11/04/21 11:21 Last Admin: 10/07/21 08:13 Dose: 650 mg Documented by: Albuterol (Albut/Ipratrop 3mg/0.5mg Neb 3 Ml Vial) 3 ml NEB Q4R PRN; Protocol PRN Reason: shortness of breath Stop: 11/03/21 18:59 Doxycycline Hyclate (Doxycycline Hyclate 100 Mg Cap) 100 mg PO BID [facility] Stop: 10/12/21 20:59 Last Admin: 10/07/21 08:15 Dose: 100 mg Documented by: Enoxaparin Sodium (Enoxaparin Inj 40 Mg/0.4 Ml Syr) 40 mg SQ Q24H [facility] Stop: 11/03/21 21:59 Last Admin: 10/06/21 20:59 Dose: 40 mg Documented by: Fluoxetine HCl (Fluoxetine Hcl 20 Mg Cap) 20 mg PO DAILY [facility] Stop: 11/04/21 13:59 Last Admin: 10/07/21 08:15 Dose: 20 mg Documented by: Fluticasone/Vilanterol (Fluticasone/Vilanterol 100/25mcg 14 Puffs/Inhaler) 1 puffs INH DAILY [facility] Stop: 11/04/21 13:59 Last Admin: 10/07/21 08:16 Dose: 1 puffs Documented by: Gabapentin (Gabapentin 800 Mg Tab) 800 mg PO TID [facility] Stop: 11/04/21 20:59 Last Admin: 10/07/21 08:14 Dose: 800 mg Documented by: Sodium Chloride (Nss 1000ml) 1,000 mls @ 80 mls/hr IV .[id number] [facility] Stop: 11/03/21 13:33 Last Admin: 10/07/21 05:55 Dose: 80 mls/hr Documented by: Ceftriaxone Sodium 2,000 mg/ (Dextrose) 70 mls @ 140 mls/hr IV Q24H [facility]; Protocol Stop: 10/12/21 10:14 Last Infusion: 10/07/21 11:03 Dose: Infused Documented by: Loperamide HCl (Loperamide Hcl 2 Mg Cap) 2 mg PO UD PRN PRN Reason: Diarrhea Stop: 11/05/21 21:24 Last Admin: 10/07/21 05:53 Dose: 2 mg Documented by: Lorazepam (Lorazepam 0.5 Mg Tab) 0.5 mg PO TID PRN PRN Reason: Anxiety Stop: 11/05/21 10:55 Last Admin: 10/07/21 06:25 Dose: 0.5 mg Documented by: Methadone HCl (Methadone Oral Soln 2 Mg/Ml) 96 mg PO DAILY [facility]; Protocol Stop: 10/19/21 13:59 Last Admin: 10/07/21 08:13 Dose: 96 mg Documented by: Miscellaneous (Remove Nicoderm Patch) 1 ea N/A DAILY@0859 [facility] Stop: 11/06/21 08:58 Last Admin: 10/07/21 08:14 Dose: 1 ea Documented by: Nicotine (Nicotine 21 Mg/24 Hr Tdsy) 21 mg TD QAM [facility] Stop: 11/05/21 10:59 Last Admin: 10/07/21 08:14 Dose: 21 mg Documented by: Non-Formulary Medication (Patient's Own Controlled Med 1) 1 ea PO DAILY [facility] Stop: 10/20/21 08:59 Last Admin: 10/07/21 08:22 Dose: Not Given Documented by: Potassium Chloride (Potassium Chloride Crtab 20 Meq Tabcr) 40 meq PO BID [facility] Stop: 10/08/21 08:59 Last Admin: 10/07/21 08:30 Dose: 40 meq Documented by: Saccharomyces Boulardii (Saccharomyces Boulardii 250 Mg Cap) 250 mg PO BID [facility] Stop: 11/05/21 20:59 Last Admin: 10/07/21 08:15 Dose: 250 mg Documented by: Topiramate (Topiramate 25 Mg Tab) 25 mg PO DAILY [facility] Stop: 11/04/21 13:59 Last Admin: 10/07/21 08:15 Dose: 25 mg Documented by:
--- NOTE | 2021-10-07 12:36 | Hospitalist Progress Note ---
Date of Service October 07, 2021 Assessment & Plan (1) Acute drug overdose: (2) Polysubstance abuse: (3) On mechanically assisted ventilation: (4) Delirium: (5) Hypokalemia: (6) Pneumonia: Plan: This is a 51-year-old female who has a significant past medical history of COPD, hepatitis C, narcolepsy, borderline personality disorder, bipolar disorder, depression, polysubstance abuse who presents to ED / [facility] from her methadone clinic. Urine culture positive for methadone, amphetamine, MDMA and THC. Acute drug overdose Poly Substance abuse -Urine drug screen + methadone, amphetamine, MDMA, and THC -Patient now admits to using meth -not interested in rehab -continue ativan 0.5mg PO TID PRN for anxiety Possible asp pneumonia CXR concerning for pneumonia s/p zosyn upon admission, now on doxycycline and ceftriaxone day # 4 antibiotics Hypokalemia improved Prolonged QTc -normalized Borderline Personality disorder Bipolar -Appreciate psychiatry input. Can discontinue suicide precautions, 1-1 sitter. Patient declines drug rehab but agreeable for OP psychiatry follow up. COPD continue nebs prn no acute exac DVT ppx: SQ lovenox Dispo: Discharge tomorrow morning once OP psychiatry follow up is confirmed Admission and Anticipated Discharge Date Admission Date: October 04, 2021 Subjective Feels better, still with anxiety. This morning received extra 0.5mg PO ativan Physical Exam Physical Exam: Appears well, disheveled, unkempt but no acute distress Respiratory: breathing comfortably on room air, no wheezing/rhonchi/rales Cardiovascular: bradycardic, regular rate and rhythm, no murmurs/rubs/gallops Gastrointestinal (Abdomen): soft, non tender Musculoskeletal: no edema Neurologic: awake, alert, spontaneously moving extremities Results & Data Results & Data ([facility]) Vital Signs (Past 12 Hours) Vital Signs Temp Pulse Pulse Resp BP BP Pulse Ox 10/07/21 12:00 36.7 C 65 14 116/79 92 10/07/21 08:42 61 10/07/21 06:52 36.5 C 62 18 138/98 93 10/07/21 03:50 36.5 C 53 L 17 138/85 95 Laboratory Results Short CBC 10/07/21 Range/Units 04:09 WBC 5.84 (4.8-10.8) K/uL Hgb 13.4 (12.0-16.0) g/dL Hct 40.9 (37-47) % Plt Count 221 (130-400) K/uL BMP 10/07/21 04:09 Sodium 140 Potassium 3.4 L Chloride 112 H Carbon Dioxide 25 BUN 8 Creatinine 0.68 Glucose 112 H Calcium 8.3 L Medications Administered Current Inpatient Medications Acetaminophen (Acetaminophen 325 Mg Tab) 650 mg PO Q4H PRN PRN Reason: Pain Stop: 11/04/21 11:21 Last Admin: 10/07/21 08:13 Dose: 650 mg Documented by: Albuterol (Albut/Ipratrop 3mg/0.5mg Neb 3 Ml Vial) 3 ml NEB Q4R PRN; Protocol PRN Reason: shortness of breath Stop: 11/03/21 18:59 Doxycycline Hyclate (Doxycycline Hyclate 100 Mg Cap) 100 mg PO BID HILARIO Stop: 10/12/21 20:59 Last Admin: 10/07/21 08:15 Dose: 100 mg Documented by: Enoxaparin Sodium (Enoxaparin Inj 40 Mg/0.4 Ml Syr) 40 mg SQ Q24H HILARIO Stop: 11/03/21 21:59 Last Admin: 10/06/21 20:59 Dose: 40 mg Documented by: Fluoxetine HCl (Fluoxetine Hcl 20 Mg Cap) 20 mg PO DAILY HILARIO Stop: 11/04/21 13:59 Last Admin: 10/07/21 08:15 Dose: 20 mg Documented by: Fluticasone/Vilanterol (Fluticasone/Vilanterol 100/25mcg 14 Puffs/Inhaler) 1 puffs INH DAILY HILARIO Stop: 11/04/21 13:59 Last Admin: 10/07/21 08:16 Dose: 1 puffs Documented by: Gabapentin (Gabapentin 800 Mg Tab) 800 mg PO TID HILARIO Stop: 11/04/21 20:59 Last Admin: 10/07/21 08:14 Dose: 800 mg Documented by: Sodium Chloride (Nss 1000ml) 1,000 mls @ 80 mls/hr IV .[id number] HILARIO Stop: 11/03/21 13:33 Last Admin: 10/07/21 05:55 Dose: 80 mls/hr Documented by: Ceftriaxone Sodium 2,000 mg/ (Dextrose) 70 mls @ 140 mls/hr IV Q24H [facility]; Protocol Stop: 10/12/21 10:14 Last Infusion: 10/07/21 11:03 Dose: Infused Documented by: Loperamide HCl (Loperamide Hcl 2 Mg Cap) 2 mg PO UD PRN PRN Reason: Diarrhea Stop: 11/05/21 21:24 Last Admin: 10/07/21 05:53 Dose: 2 mg Documented by: Lorazepam (Lorazepam 0.5 Mg Tab) 0.5 mg PO TID PRN PRN Reason: Anxiety Stop: 11/05/21 10:55 Last Admin: 10/07/21 06:25 Dose: 0.5 mg Documented by: Methadone HCl (Methadone Oral Soln 2 Mg/Ml) 96 mg PO DAILY [facility]; Protocol Stop: 10/19/21 13:59 Last Admin: 10/07/21 08:13 Dose: 96 mg Documented by: Miscellaneous (Remove Nicoderm Patch) 1 ea N/A DAILY@0859 [facility] Stop: 11/06/21 08:58 Last Admin: 10/07/21 08:14 Dose: 1 ea Documented by: Nicotine (Nicotine 21 Mg/24 Hr Tdsy) 21 mg TD QAM [facility] Stop: 11/05/21 10:59 Last Admin: 10/07/21 08:14 Dose: 21 mg Documented by: Non-Formulary Medication (Patient's Own Controlled Med 1) 1 ea PO DAILY [facility] Stop: 10/20/21 08:59 Last Admin: 10/07/21 08:22 Dose: Not Given Documented by: Potassium Chloride (Potassium Chloride Crtab 20 Meq Tabcr) 40 meq PO BID [facility] Stop: 10/08/21 08:59 Last Admin: 10/07/21 08:30 Dose: 40 meq Documented by: Saccharomyces Boulardii (Saccharomyces Boulardii 250 Mg Cap) 250 mg PO BID [facility] Stop: 11/05/21 20:59 Last Admin: 10/07/21 08:15 Dose: 250 mg Documented by: Topiramate (Topiramate 25 Mg Tab) 25 mg PO DAILY [facility] Stop: 11/04/21 13:59 Last Admin: 10/07/21 08:15 Dose: 25 mg Documented by: (1) Pneumonia Laterality: left Lung location: lower lobe of lung Pneumonia type: due to unspecified organism Qualified Code(s): J18.9 - Pneumonia, unspecified organism
[2021-10-07 18:40] LABS: Amphetamine Urine, Confirm 3820 ng/mL (<250); MDA negative; MDEA negative; MDMA (Ecstasy) Urine, Confirm negative; Marijuana Quant, GCMS Urine 1063 ng/mL (<5); Methadone, Ur Metabolite >10000 ng/mL (<100); Methamphetamine, Ur Confirm >15000 ng/mL (<250)
[2021-10-07] MEDS: ENOXAPARIN INJ 40 MG/0.4 ML SYR SQ SCH (19:52)
--- NOTE | 2021-10-07 22:12 | Electrocardiogram Report ---
Test Reason : Blood Pressure : / mmHG Vent. Rate : 054 BPM Atrial Rate : 054 BPM P-R Int : 140 ms QRS Dur : 096 ms QT Int : 448 ms P-R-T Axes : 049 058 046 degrees QTc Int : 424 ms Sinus bradycardia Otherwise normal ECG When compared with ECG of 04-OCT-2021 09:44, Vent. rate has decreased BY 58 BPM Confirmed by Reynold Rivera ([id number]) on 10/07/2021 10:12:06 PM Referred By: REFERRED SELF Confirmed By:Reynold Rivera
[2021-10-08] MEDS: ACETAMINOPHEN 325 MG TAB PO PRN (04:28)
[2021-10-08] MEDS: LOPERAMIDE HCL 2 MG CAP PO PRN (06:01)
[2021-10-08] MEDS ORDERED: LORazepam 0.5 MG TAB PO PRN (06:05)
[2021-10-08 06:27] LABS: BUN Creatinine Ratio 8.8 (10-20); Calcium 8.9 mg/dl (8.5-10.1); Est GFR (Non-African American) 102.7 ml/min; Magnesium 1.7 mg/dl (1.7-2.4); Potassium 3.9 mmol/L (3.5-5.1)
[2021-10-08] MEDS: METHADONE ORAL SOLN 2 MG/ML PO SCH (08:39)
[2021-10-08] MEDS: DOXYCYCLINE HYCLATE 100 MG CAP PO SCH (08:39)
[2021-10-08] MEDS: TOPIRAMATE 25 MG TAB PO SCH (08:40)
[2021-10-08] MEDS: SACCHAROMYCES BOULARDII 250 MG CAP PO SCH (08:40)
[2021-10-08] MEDS: FLUoxetine HCL 20 MG CAP PO SCH (08:40)
[2021-10-08] MEDS: GABAPENTIN 800 MG TAB PO SCH (08:40)
[2021-10-08] MEDS: NICOTINE 21 MG/24 HR TDSY TD SCH (08:41)
[2021-10-08] MEDS: FLUTICASONE/VILANTEROL 100/25MCG 14 PUFFS/INHALER INH SCH (08:41)
[2021-10-08] MEDS: PATIENT'S OWN CONTROLLED MED 1 PO SCH (08:42)
[2021-10-08] MEDS: cefTRIAXone SODIUM 2,000 MG in DEXTROSE 5% 50 ML IV SCH (10:33)
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
== END 2021-10-08 11:57 | disposition home or self-care (01) | DRG 917 ==
LOC: EDBD → MERGE 09:39 → ED 09:39 → 1E 12:18 → SUATTDRO 12:18 → 1E 13:27 → 2E 10-05 16:42